=== PATIENT | male | born 1955 | race Caucasian/White ===

== ENCOUNTER 2018-01-18 10:01 | Outpatient (CLI) | payer BC, SELFPAY ==
[2018-01-18 10:37] LABS: Abs Immature Grans 0.01 k/cumm (0.0-0.09); Absolute Basophil Count 0.05 k/cumm (0.0-0.2); Absolute Eosinophil Count 0.09 k/cumm (0.0-0.7); Absolute Lymphocyte Count 1.21 k/cumm (1.2-3.4); Absolute Monocyte Count 0.47 k/cumm (0.11-0.7); Absolute Neutrophil Count 3.29 k/cumm (1.2-6.7); Eosinophils % 1.8; HCT 40.5 % (40.0-50.0); HGB 14.2 g/dL (13.5-17.5); Immature Grans % 0.2; Lymphocytes % 23.6; Mean Corp. HGB Concentration 35.1 g/dL (32.0-36.0); Mean Corpuscular Hemoglobin 32.2 pg (27.0-33.0); Mean Corpuscular Volume 91.8 fL (80-95); Mean Platelet Volume 9.7 fL (8.0-11.0); Monocytes % 9.2; Neutrophils % 64.2; Platelet Count 224 x1000/uL (130-400); RBC 4.41 m/cumm (4.50-6.00); White Blood Cell Count 5.12 k/cumm (4.4-10.8)
[2018-01-18 10:48] LABS: ALT 52 U/L (12-78); AST 28 U/L (15-37); Albumin 3.8 g/dL (3.4-5.0); Alkaline Phosphatase 76 U/L (46-116); Anion Gap 8.3 mmol/L (3-11); BUN 12 mg/dL (7-18); Bilirubin, Total 0.4 mg/dL (0.2-1.0); CO2 27.7 mmol/L (21.0-32.0); CREATININE 0.95 mg/dL (0.70-1.30); Chloride 100 mmol/L (98-107); Glucose 100 mg/dL (70-100); Magnesium 1.6 mg/dL (1.8-2.4); Potassium 4.5 mmol/L (3.5-5.1); Sodium 136 mmol/L (136-145); Total Protein 7.5 g/dL (6.4-8.2)
== END 2018-01-18 10:21 ==
PROVIDERS: PCP Nurse Practitioner; Visit Provider Internal Medicine Medical Oncology
DX: C32.9 Malignant neoplasm of larynx, unspecified (principal)
CPT/HCPCS: 36415; 80053; 80061; 82306; 83721; 83735; 85025

== ENCOUNTER 2018-01-27 14:23 | Outpatient (CLI) | payer BC, SELFPAY ==
[2018-01-27 16:37] LABS: Cholesterol 153 mg/dL (50-200); HDL Cholesterol 44 mg/dL (40-60); LDL CHOLESTEROL 77 mg/dL (<100); Triglyceride 361 mg/dL (30-150)
[2018-01-28 06:02] LABS: Vitamin D 25 Total 30.8 ng/ml (30-100)
== END 2018-01-27 14:43 ==
PROVIDERS: PCP Nurse Practitioner; Visit Provider Internal Medicine Medical Oncology
DX: I10 Essential (primary) hypertension (principal); E78.5 Hyperlipidemia, unspecified; F17.200 Nicotine dependence, unspecified, uncomplicated; E55.9 Vitamin D deficiency, unspecified
CPT/HCPCS: 36415; 80061; 82306; 83721

== ENCOUNTER 2018-01-28 08:59 | Outpatient (CLI) | payer BC, SELFPAY ==
[2018-01-28 09:14] LABS: Abs Immature Grans 0.02 k/cumm (0.0-0.09); Absolute Basophil Count 0.03 k/cumm (0.0-0.2); Absolute Eosinophil Count 0.11 k/cumm (0.0-0.7); Absolute Lymphocyte Count 0.75 k/cumm (1.2-3.4); Absolute Monocyte Count 0.72 k/cumm (0.11-0.7); Absolute Neutrophil Count 4.67 k/cumm (1.2-6.7); Basophils % 0.5; Eosinophils % 1.7; HCT 39.8 % (40.0-50.0); HGB 13.7 g/dL (13.5-17.5); Immature Grans % 0.3; Lymphocytes % 11.9; Mean Corp. HGB Concentration 34.4 g/dL (32.0-36.0); Mean Corpuscular Hemoglobin 31.4 pg (27.0-33.0); Mean Corpuscular Volume 91.3 fL (80-95); Mean Platelet Volume 9.4 fL (8.0-11.0); Monocytes % 11.4; Neutrophils % 74.2; Platelet Count 221 x1000/uL (130-400); RBC 4.36 m/cumm (4.50-6.00); RBC Distribution Width 13.7 % (11.8-14.1)
[2018-01-28 09:28] LABS: ALT 50 U/L (12-78); AST 15 U/L (15-37); Albumin 3.6 g/dL (3.4-5.0); Alkaline Phosphatase 63 U/L (46-116); Anion Gap 6.6 mmol/L (3-11); BUN 19 mg/dL (7-18); Bilirubin, Total 0.5 mg/dL (0.2-1.0); CO2 31.4 mmol/L (21.0-32.0); CREATININE 1.03 mg/dL (0.70-1.30); Calcium 8.9 mg/dL (8.5-10.1); Chloride 98 mmol/L (98-107); Glucose 124 mg/dL (70-100); Magnesium 1.3 mg/dL (1.8-2.4); Potassium 3.6 mmol/L (3.5-5.1); Sodium 136 mmol/L (136-145); Total Protein 7.1 g/dL (6.4-8.2)
== END 2018-01-28 09:19 ==
PROVIDERS: PCP Nurse Practitioner; Visit Provider Internal Medicine Medical Oncology
DX: C32.9 Malignant neoplasm of larynx, unspecified (principal)
CPT/HCPCS: 36415; 80053; 83735; 85025

== ENCOUNTER 2018-02-03 11:53 | Outpatient (CLI) | payer BC, SELFPAY ==
[2018-02-03 12:26] LABS: Abs Immature Grans 0.01 k/cumm (0.0-0.09); Absolute Basophil Count 0.04 k/cumm (0.0-0.2); Absolute Eosinophil Count 0.09 k/cumm (0.0-0.7); Absolute Lymphocyte Count 0.96 k/cumm (1.2-3.4); Absolute Monocyte Count 0.49 k/cumm (0.11-0.7); Absolute Neutrophil Count 5.23 k/cumm (1.2-6.7); Basophils % 0.6; Eosinophils % 1.3; HCT 37.3 % (40.0-50.0); HGB 12.8 g/dL (13.5-17.5); Immature Grans % 0.1; Lymphocytes % 14.1; Mean Corp. HGB Concentration 34.3 g/dL (32.0-36.0); Mean Corpuscular Hemoglobin 31.9 pg (27.0-33.0); Mean Platelet Volume 9.4 fL (8.0-11.0); Monocytes % 7.2; Neutrophils % 76.7; Platelet Count 220 x1000/uL (130-400); RBC 4.01 m/cumm (4.50-6.00); RBC Distribution Width 13.8 % (11.8-14.1); White Blood Cell Count 6.82 k/cumm (4.4-10.8)
[2018-02-03 12:37] LABS: Magnesium 1.1 mg/dL (1.8-2.4)
[2018-02-04 10:11] LABS: ALT 57 U/L (12-78); AST 19 U/L (15-37); Albumin 3.6 g/dL (3.4-5.0); Alkaline Phosphatase 62 U/L (46-116); Anion Gap 8.6 mmol/L (3-11); BUN 26 mg/dL (7-18); Bilirubin, Total 0.4 mg/dL (0.2-1.0); CO2 30.4 mmol/L (21.0-32.0); CREATININE 1.21 mg/dL (0.70-1.30); Calcium 9.2 mg/dL (8.5-10.1); Chloride 96 mmol/L (98-107); Glucose 199 mg/dL (70-100); Sodium 135 mmol/L (136-145); Total Protein 6.9 g/dL (6.4-8.2)
== END 2018-02-03 12:13 ==
PROVIDERS: PCP Nurse Practitioner; Visit Provider Internal Medicine Medical Oncology
DX: C32.9 Malignant neoplasm of larynx, unspecified (principal)
CPT/HCPCS: 36415; 80053; 83735; 85025

== ENCOUNTER 2018-02-10 14:12 | Outpatient (CLI) | payer BC, SELFPAY ==
[2018-02-10 14:31] LABS: Abs Immature Grans 0.02 k/cumm (0.0-0.09); Absolute Basophil Count 0.03 k/cumm (0.0-0.2); Absolute Lymphocyte Count 0.58 k/cumm (1.2-3.4); Absolute Monocyte Count 0.64 k/cumm (0.11-0.7); Absolute Neutrophil Count 4.39 k/cumm (1.2-6.7); Basophils % 0.5; Eosinophils % 1.7; HCT 32.9 % (40.0-50.0); HGB 11.5 g/dL (13.5-17.5); Immature Grans % 0.3; Lymphocytes % 10.1; Mean Corpuscular Hemoglobin 32.1 pg (27.0-33.0); Mean Corpuscular Volume 91.9 fL (80-95); Mean Platelet Volume 9.1 fL (8.0-11.0); Monocytes % 11.1; Neutrophils % 76.3; Platelet Count 222 x1000/uL (130-400); RBC 3.58 m/cumm (4.50-6.00); RBC Distribution Width 13.7 % (11.8-14.1); White Blood Cell Count 5.76 k/cumm (4.4-10.8)
[2018-02-10 14:53] LABS: ALT 29 U/L (12-78); AST 11 U/L (15-37); Albumin 3.4 g/dL (3.4-5.0); Alkaline Phosphatase 55 U/L (46-116); Anion Gap 9.3 mmol/L (3-11); BUN 26 mg/dL (7-18); Bilirubin, Total 0.3 mg/dL (0.2-1.0); CO2 27.7 mmol/L (21.0-32.0); CREATININE 1.07 mg/dL (0.70-1.30); Calcium 9.1 mg/dL (8.5-10.1); Chloride 96 mmol/L (98-107); Glucose 122 mg/dL (70-100); Magnesium 1.1 mg/dL (1.8-2.4); Potassium 3.7 mmol/L (3.5-5.1); Sodium 133 mmol/L (136-145); Total Protein 6.7 g/dL (6.4-8.2)
== END 2018-02-10 14:32 ==
PROVIDERS: PCP Nurse Practitioner; Visit Provider Internal Medicine Medical Oncology
DX: C32.9 Malignant neoplasm of larynx, unspecified (principal)
CPT/HCPCS: 36415; 80053; 83735; 85025

== ENCOUNTER 2018-02-17 14:13 | Outpatient (CLI) | payer BC, SELFPAY ==
[2018-02-17 14:36] LABS: Abs Immature Grans 0.01 k/cumm (0.0-0.09); Absolute Basophil Count 0.02 k/cumm (0.0-0.2); Absolute Eosinophil Count 0.13 k/cumm (0.0-0.7); Absolute Lymphocyte Count 0.51 k/cumm (1.2-3.4); Absolute Neutrophil Count 3.74 k/cumm (1.2-6.7); Basophils % 0.4; Eosinophils % 2.6; HCT 30.8 % (40.0-50.0); HGB 10.7 g/dL (13.5-17.5); Immature Grans % 0.2; Lymphocytes % 10.2; Mean Corp. HGB Concentration 34.7 g/dL (32.0-36.0); Mean Corpuscular Hemoglobin 32.1 pg (27.0-33.0); Mean Corpuscular Volume 92.5 fL (80-95); Mean Platelet Volume 8.4 fL (8.0-11.0); Neutrophils % 74.6; Platelet Count 169 x1000/uL (130-400); RBC 3.33 m/cumm (4.50-6.00); RBC Distribution Width 13.9 % (11.8-14.1); White Blood Cell Count 5.01 k/cumm (4.4-10.8)
[2018-02-17 14:52] LABS: ALT 25 U/L (12-78); AST 9 U/L (15-37); Albumin 3.3 g/dL (3.4-5.0); Alkaline Phosphatase 60 U/L (46-116); Anion Gap 8.2 mmol/L (3-11); BUN 19 mg/dL (7-18); Bilirubin, Total 0.3 mg/dL (0.2-1.0); CO2 28.8 mmol/L (21.0-32.0); CREATININE 0.96 mg/dL (0.70-1.30); Calcium 8.6 mg/dL (8.5-10.1); Chloride 96 mmol/L (98-107); Glucose 122 mg/dL (70-100); Magnesium 1.1 mg/dL (1.8-2.4); Potassium 4.1 mmol/L (3.5-5.1); Sodium 133 mmol/L (136-145); Total Protein 6.5 g/dL (6.4-8.2)
== END 2018-02-17 14:33 ==
PROVIDERS: PCP Nurse Practitioner; Visit Provider Internal Medicine Medical Oncology
DX: C32.9 Malignant neoplasm of larynx, unspecified (principal)
CPT/HCPCS: 36415; 80053; 83735; 85025

== ENCOUNTER 2018-02-24 14:09 | Outpatient (CLI) | payer BC, SELFPAY ==
[2018-02-24 14:36] LABS: Abs Immature Grans 0.01 k/cumm (0.0-0.09); Absolute Basophil Count 0.01 k/cumm (0.0-0.2); Absolute Eosinophil Count 0.09 k/cumm (0.0-0.7); Absolute Lymphocyte Count 0.48 k/cumm (1.2-3.4); Absolute Monocyte Count 0.44 k/cumm (0.11-0.7); Absolute Neutrophil Count 2.75 k/cumm (1.2-6.7); Basophils % 0.3; Eosinophils % 2.4; HGB 10.6 g/dL (13.5-17.5); Immature Grans % 0.3; Lymphocytes % 12.7; Mean Corp. HGB Concentration 35.3 g/dL (32.0-36.0); Mean Corpuscular Hemoglobin 32.4 pg (27.0-33.0); Mean Corpuscular Volume 91.7 fL (80-95); Mean Platelet Volume 8.2 fL (8.0-11.0); Monocytes % 11.6; Neutrophils % 72.7; Platelet Count 108 x1000/uL (130-400); RBC 3.27 m/cumm (4.50-6.00); RBC Distribution Width 14.4 % (11.8-14.1); White Blood Cell Count 3.78 k/cumm (4.4-10.8)
[2018-02-24 14:48] LABS: ALT 29 U/L (12-78); AST 9 U/L (15-37); Albumin 3.5 g/dL (3.4-5.0); Alkaline Phosphatase 55 U/L (46-116); BUN 19 mg/dL (7-18); Bilirubin, Total 0.4 mg/dL (0.2-1.0); CREATININE 0.81 mg/dL (0.70-1.30); Calcium 9.5 mg/dL (8.5-10.1); Chloride 98 mmol/L (98-107); Glucose 106 mg/dL (70-100); Magnesium 1.3 mg/dL (1.8-2.4); Potassium 4.1 mmol/L (3.5-5.1); Sodium 134 mmol/L (136-145); Total Protein 6.8 g/dL (6.4-8.2)
== END 2018-02-24 14:29 ==
PROVIDERS: PCP Nurse Practitioner; Visit Provider Internal Medicine Medical Oncology
DX: C32.9 Malignant neoplasm of larynx, unspecified (principal)
CPT/HCPCS: 36415; 80053; 83735; 85025

== ENCOUNTER 2018-03-03 14:08 | Outpatient (CLI) | payer BC, SELFPAY ==
[2018-03-03 14:31] LABS: Absolute Basophil Count 0.01 k/cumm (0.0-0.2); Absolute Eosinophil Count 0.07 k/cumm (0.0-0.7); Absolute Lymphocyte Count 0.51 k/cumm (1.2-3.4); Absolute Neutrophil Count 2.76 k/cumm (1.2-6.7); Basophils % 0.3; Eosinophils % 1.9; HCT 31.4 % (40.0-50.0); HGB 10.9 g/dL (13.5-17.5); Lymphocytes % 13.6; Mean Corp. HGB Concentration 34.7 g/dL (32.0-36.0); Mean Corpuscular Hemoglobin 32.7 pg (27.0-33.0); Mean Corpuscular Volume 94.3 fL (80-95); Mean Platelet Volume 7.8 fL (8.0-11.0); Monocytes % 10.7; Neutrophils % 73.5; Platelet Count 126 x1000/uL (130-400); RBC 3.33 m/cumm (4.50-6.00); RBC Distribution Width 14.9 % (11.8-14.1); White Blood Cell Count 3.75 k/cumm (4.4-10.8)
[2018-03-03 14:43] LABS: ALT 27 U/L (12-78); AST 10 U/L (15-37); Albumin 3.4 g/dL (3.4-5.0); Alkaline Phosphatase 56 U/L (46-116); Anion Gap 7.8 mmol/L (3-11); BUN 21 mg/dL (7-18); Bilirubin, Total 0.4 mg/dL (0.2-1.0); CO2 32.2 mmol/L (21.0-32.0); CREATININE 0.82 mg/dL (0.70-1.30); Calcium 9.4 mg/dL (8.5-10.1); Chloride 95 mmol/L (98-107); Glucose 115 mg/dL (70-100); Potassium 3.9 mmol/L (3.5-5.1); Sodium 135 mmol/L (136-145); Total Protein 6.9 g/dL (6.4-8.2)
[2018-03-04 10:56] LABS: Magnesium 1.5 mg/dL (1.8-2.4)
== END 2018-03-03 14:28 ==
PROVIDERS: PCP Nurse Practitioner; Visit Provider Internal Medicine Medical Oncology
DX: C32.9 Malignant neoplasm of larynx, unspecified (principal)
CPT/HCPCS: 36415; 80053; 83735; 85025

== ENCOUNTER 2018-03-10 09:16 | Outpatient (CLI) | payer BC, SELFPAY ==
[2018-03-10 09:42] LABS: Magnesium 1.4 mg/dL (1.8-2.4)
[2018-03-11 11:20] LABS: ALT 28 U/L (12-78); AST 7 U/L (15-37); Albumin 3.6 g/dL (3.4-5.0); Alkaline Phosphatase 59 U/L (46-116); Anion Gap 7.7 mmol/L (3-11); BUN 15 mg/dL (7-18); Bilirubin, Total 0.4 mg/dL (0.2-1.0); CO2 29.3 mmol/L (21.0-32.0); CREATININE 0.75 mg/dL (0.70-1.30); Calcium 9.4 mg/dL (8.5-10.1); Chloride 98 mmol/L (98-107); Glucose 118 mg/dL (70-100); Potassium 3.8 mmol/L (3.5-5.1); Sodium 135 mmol/L (136-145)
== END 2018-03-10 09:36 ==
PROVIDERS: Internal Medicine Medical Oncology; PCP Nurse Practitioner; Visit Provider Nurse Practitioner Adult Health
DX: C32.9 Malignant neoplasm of larynx, unspecified (principal)
CPT/HCPCS: 36415; 80053; 83735

== ENCOUNTER 2018-03-11 12:19 | Outpatient (CLI) | payer BC, SELFPAY ==
[2018-03-11 12:38] LABS: Absolute Basophil Count 0.01 k/cumm (0.0-0.2); Absolute Eosinophil Count 0.05 k/cumm (0.0-0.7); Absolute Lymphocyte Count 0.37 k/cumm (1.2-3.4); Absolute Monocyte Count 0.29 k/cumm (0.11-0.7); Basophils % 0.4; Eosinophils % 2.1; HCT 27.2 % (40.0-50.0); HGB 9.5 g/dL (13.5-17.5); Lymphocytes % 15.3; Mean Corp. HGB Concentration 34.9 g/dL (32.0-36.0); Mean Corpuscular Hemoglobin 33.1 pg (27.0-33.0); Mean Corpuscular Volume 94.8 fL (80-95); Mean Platelet Volume 7.7 fL (8.0-11.0); Neutrophils % 70.2; Platelet Count 177 x1000/uL (130-400); RBC 2.87 m/cumm (4.50-6.00); RBC Distribution Width 15.7 % (11.8-14.1); White Blood Cell Count 2.42 k/cumm (4.4-10.8)
[2018-03-11 12:51] LABS: ALT 26 U/L (12-78); AST 11 U/L (15-37); Albumin 3.3 g/dL (3.4-5.0); Alkaline Phosphatase 54 U/L (46-116); Anion Gap 5.4 mmol/L (3-11); BUN 11 mg/dL (7-18); Bilirubin, Total 0.3 mg/dL (0.2-1.0); CO2 29.6 mmol/L (21.0-32.0); CREATININE 0.72 mg/dL (0.70-1.30); Calcium 8.6 mg/dL (8.5-10.1); Chloride 99 mmol/L (98-107); Glucose 149 mg/dL (70-100); Potassium 3.7 mmol/L (3.5-5.1); Sodium 134 mmol/L (136-145); Total Protein 6.5 g/dL (6.4-8.2)
== END 2018-03-11 12:39 ==
PROVIDERS: PCP Nurse Practitioner; Visit Provider Nurse Practitioner Adult Health
DX: C32.9 Malignant neoplasm of larynx, unspecified (principal)
CPT/HCPCS: 36415; 80053; 85025

== ENCOUNTER 2018-03-17 11:28 | Outpatient (CLI) | payer BC, SELFPAY ==
[2018-03-17 12:07] LABS: Absolute Basophil Count 0.01 k/cumm (0.0-0.2); Absolute Eosinophil Count 0.05 k/cumm (0.0-0.7); Absolute Lymphocyte Count 0.42 k/cumm (1.2-3.4); Absolute Monocyte Count 0.47 k/cumm (0.11-0.7); Basophils % 0.4; Eosinophils % 1.8; HCT 27.1 % (40.0-50.0); HGB 9.7 g/dL (13.5-17.5); Lymphocytes % 14.7; Mean Corp. HGB Concentration 35.8 g/dL (32.0-36.0); Mean Corpuscular Hemoglobin 33.7 pg (27.0-33.0); Mean Corpuscular Volume 94.1 fL (80-95); Mean Platelet Volume 8.3 fL (8.0-11.0); Monocytes % 16.5; Neutrophils % 66.6; Platelet Count 179 x1000/uL (130-400); RBC 2.88 m/cumm (4.50-6.00); RBC Distribution Width 16.1 % (11.8-14.1); White Blood Cell Count 2.85 k/cumm (4.4-10.8)
[2018-03-17 12:10] LABS: ALT 29 U/L (12-78); AST 8 U/L (15-37); Albumin 3.4 g/dL (3.4-5.0); Alkaline Phosphatase 65 U/L (46-116); Anion Gap 9.1 mmol/L (3-11); BUN 15 mg/dL (7-18); Bilirubin, Total 0.4 mg/dL (0.2-1.0); CO2 30.9 mmol/L (21.0-32.0); CREATININE 0.75 mg/dL (0.70-1.30); Calcium 9.4 mg/dL (8.5-10.1); Chloride 97 mmol/L (98-107); Glucose 124 mg/dL (70-100); Magnesium 1.4 mg/dL (1.8-2.4); Potassium 3.6 mmol/L (3.5-5.1); Sodium 137 mmol/L (136-145); Total Protein 6.7 g/dL (6.4-8.2)
== END 2018-03-17 11:48 ==
PROVIDERS: PCP Nurse Practitioner; Visit Provider Nurse Practitioner Adult Health
DX: C32.9 Malignant neoplasm of larynx, unspecified (principal)
CPT/HCPCS: 36415; 80053; 83735; 85025

== ENCOUNTER 2018-03-25 13:33 | Outpatient (REF) | payer BC, SELFPAY ==
[2018-03-25 14:14] LABS: Uric Acid 4.5 mg/dL (3.5-7.2)
== END 2018-03-25 13:53 ==
LOC: LBN 13:33
PROVIDERS: PCP Nurse Practitioner; Visit Provider Nurse Practitioner
DX: M79.671 Pain in right foot (principal); M79.672 Pain in left foot; M79.675 Pain in left toe(s)
CPT/HCPCS: 84550

== ENCOUNTER 2018-04-07 14:06 | Outpatient (CLI) | payer BC, SELFPAY ==
[2018-04-07 14:36] LABS: Abs Immature Grans 0.01 k/cumm (0.0-0.09); Absolute Basophil Count 0.02 k/cumm (0.0-0.2); Absolute Eosinophil Count 0.09 k/cumm (0.0-0.7); Absolute Lymphocyte Count 0.69 k/cumm (1.2-3.4); Absolute Monocyte Count 0.57 k/cumm (0.11-0.7); Absolute Neutrophil Count 2.75 k/cumm (1.2-6.7); Basophils % 0.5; Eosinophils % 2.2; HCT 31.4 % (40.0-50.0); HGB 10.8 g/dL (13.5-17.5); Immature Grans % 0.2; Lymphocytes % 16.7; Mean Corp. HGB Concentration 34.4 g/dL (32.0-36.0); Mean Corpuscular Volume 98.7 fL (80-95); Mean Platelet Volume 8.5 fL (8.0-11.0); Monocytes % 13.8; Neutrophils % 66.6; Platelet Count 209 x1000/uL (130-400); RBC 3.18 m/cumm (4.50-6.00); RBC Distribution Width 16.5 % (11.8-14.1); White Blood Cell Count 4.13 k/cumm (4.4-10.8)
[2018-04-07 14:58] LABS: ALT 28 U/L (12-78); AST 13 U/L (15-37); Albumin 3.7 g/dL (3.4-5.0); Alkaline Phosphatase 59 U/L (46-116); Anion Gap 9.8 mmol/L (3-11); BUN 18 mg/dL (7-18); Bilirubin, Total 0.5 mg/dL (0.2-1.0); CO2 28.2 mmol/L (21.0-32.0); CREATININE 0.84 mg/dL (0.70-1.30); Calcium 9.2 mg/dL (8.5-10.1); Chloride 99 mmol/L (98-107); Glucose 98 mg/dL (70-100); Magnesium 1.5 mg/dL (1.8-2.4); Potassium 4.2 mmol/L (3.5-5.1); Sodium 137 mmol/L (136-145); TSH 1.49 uIU/mL (0.358-3.74); Total Protein 7.1 g/dL (6.4-8.2)
== END 2018-04-07 14:26 ==
LOC: LBN 14:07 → LBO 14:09
PROVIDERS: PCP Nurse Practitioner; Visit Provider Nurse Practitioner Adult Health
DX: C32.9 Malignant neoplasm of larynx, unspecified (principal); E03.9 Hypothyroidism, unspecified
CPT/HCPCS: 36415; 80053; 83735; 84443; 85025

== ENCOUNTER 2018-05-18 02:11 | Outpatient (CLI) | payer BC, SELFPAY | END 2018-05-18 02:31 | PROVIDERS: PCP Nurse Practitioner | DX: R13.11 Dysphagia, oral phase (principal) | CPT/HCPCS: 92610 ==

== ENCOUNTER 2018-06-29 00:40 | Outpatient (CLI) | payer BC, SELFPAY ==
[2018-06-29 09:09] LABS: Cholesterol 163 mg/dL (50-200); HDL Cholesterol 38 mg/dL (40-60); LDL CHOLESTEROL 101 mg/dL (<100); Triglyceride 118 mg/dL (30-150)
== END 2018-06-29 01:00 ==
PROVIDERS: PCP Nurse Practitioner; Visit Provider Nurse Practitioner
DX: E78.5 Hyperlipidemia, unspecified (principal)
CPT/HCPCS: 36415; 80053; 80061; 83721; 83735; 85025

== ENCOUNTER 2019-01-07 10:31 | Day surgery (SDC) | payer BC, SELFPAY ==
[2019-01-07 10:54] VITALS: BP 110/77; PULSE 98; RESP 18; TEMP 36.1; O2SAT 95
[2019-01-07] MEDS: Lactated Ringers 1,000 ML 80 ML IV (11:01)
--- NOTE | 2019-01-07 13:05 | W.PM.DSUDISC ---
Discharge Plan Disposition Patient Disposition: HOME Condition: Good Discharge Details Reason For Visit: Colonoscopy Attending Provider: Daisy Bey Primary Care Provider: Alondra Pedersen Home Meds and New Rx's Prescriptions: Continued losartan 100 mg tablet 100 mg PO DAILY Qty: 90 RF: 3 pravastatin 40 mg tablet 40 mg PO DAILY Qty: 90 RF: 3 Discharge Instructions Additional Instructions: Findings: Your colonoscopy showed diverticulosis. No polyps were found. Follow up: Plan for a follow up colonoscopy in 5 years due to family history and personal history of polyps Please call if you develop: fevers >101.5 Nausea or Vomiting Abdominal pain that is not transient DAY SURGERY UNIT POST COLONOSCOPY INSTRUCTIONS 1. Because there will be medication in your system for the next 24 hours, you may feel a little sleepy. Your coordination will be affected. Therefore: a. Do not drive or operate dangerous equipment for 24 hours. b. Do not drink alcohol beverages for 24 hours (not even beer). c. Plan to go home and rest for the day. 2. Generally there are no restrictions on your activity after a day or so has gone by, but you may feel a bit fatigued for a few days. 3 After you arrive home you may have a light meal and return to a normal diet as you can tolerate it without feeling sick to your stomach. 4. After surgery, you may feel pain or discomfort. This should be only transient, but if it persists please contact your doctor. 5. If there are any questions regarding the findings of your procedure, please feel free to contact your doctor. 6. If you are unable to contact your doctor with a problem, contact the hospital at [phone]. 7. Continue all your regular medications unless directed otherwise. I understand the above instructions and have no questions. Signature of Patient or Responsible Adult Escort Date/Time Name of Responsible Adult Escort Signature of Nurse Date/Time Activity:: Activity as Tolerated Diet:: As Tolerated Discharge Orders Discharge Orders: Discharge Order (Routine); Ordered 01/07/19 Ordered By: Daisy Bey DS: Diagnosis Discharge Diagnosis (1) Diverticulosis: Status: Acute
[2019-01-07 13:50] VITALS: BP 100/69; PULSE 91; RESP 16; TEMP 36.3; O2SAT 96
--- NOTE | 2019-01-07 13:51 | COLE_ITS ---
JANUARY 07, 2019 PREOPERATIVE DIAGNOSIS: 1) History of colon polyps. 2) Family history of colon cancer. POSTOPERATIVE DIAGNOSIS: 1) Diverticulosis. OPERATION: Colonoscopy. ANESTHESIA: General. INDICATIONS: This is a 63-year-old man whose mother was treated for colon cancer. The patient had a colonoscopy in 2013 that showed tubular adenomas and presents for routine follow-up. He is asympto matic. PROCEDURE: The patient was placed in the left [place]. Propofol was titrated to sedation. Digital rectal exam revealed no abnormalities. The scope was advanced to the cecum without difficulty. The ileocecal valve and appendiceal orifice were clearly identified. His prep was excellent. The scope was fully withdrawn with no abnormaliti es seen within the ascending, transverse or descending colon. He had mild to moderate diverticular c hange in the sigmoid region. The rectum was normal including retroflexed view. He tolerated the procedure well and was stable and sent to recovery. With his history of polyps and family history of colon cancer he will need a follow-up colonoscopy again in five years.
== END 2019-01-07 14:25 | disposition home or self-care (01) ==
PROVIDERS: PCP Nurse Practitioner; Visit Provider Surgery
PROC: 0DJD8ZZ Inspection of Lower Intestinal Tract, Via Natural or Artificial Opening Endoscopic (ICD-10-PCS; CPT 45378; principal; 2019-01-07 13:15)
DX: Z12.11 Encounter for screening for malignant neoplasm of colon (principal); Z86.010 Personal history of colon polyps; Z80.0 Family history of malignant neoplasm of digestive organs; K57.30 Diverticulosis of large intestine without perforation or abscess without bleeding; I10 Essential (primary) hypertension
CPT/HCPCS: 45378; J2250; J3010

== ENCOUNTER 2019-01-19 09:50 | Outpatient (CLI) | payer BC, SELFPAY ==
[2019-01-19 15:13] LABS: HCT 40.3 % (40.0-50.0); HGB 13.9 g/dL (13.5-17.5); Mean Corp. HGB Concentration 34.5 g/dL (32.0-36.0); Mean Corpuscular Hemoglobin 32.9 pg (27.0-33.0); Mean Corpuscular Volume 95.5 fL (80-95); Mean Platelet Volume 9.4 fL (8.0-11.0); Platelet Count 284 x1000/uL (130-400); RBC 4.22 m/cumm (4.50-6.00); RBC Distribution Width 13.6 % (11.8-14.1); White Blood Cell Count 5.67 k/cumm (4.4-10.8)
[2019-01-19 15:51] LABS: ALT 35 U/L (16-63); AST 14 U/L (15-37); Alkaline Phosphatase 89 U/L (46-116); Anion Gap 10.6 mmol/L (3-11); BUN 19 mg/dL (7-18); Bilirubin, Total 0.6 mg/dL (0.2-1.0); CO2 27.4 mmol/L (21.0-32.0); CREATININE 1.07 mg/dL (0.70-1.30); Calculated LDL 69 mg/dL; Chloride 97 mmol/L (98-107); Cholesterol 151 mg/dL (50-200); Glucose 135 mg/dL (70-100); HDL Cholesterol 36 mg/dL (40-60); Potassium 4.2 mmol/L (3.5-5.1); Sodium 135 mmol/L (136-145); Total Protein 7.2 g/dL (6.4-8.2); Triglyceride 233 mg/dL (30-150)
[2019-01-19 15:58] LABS: Calcium 9.8 mg/dL (8.5-10.1)
== END 2019-01-19 10:10 ==
PROVIDERS: PCP Nurse Practitioner; Visit Provider Nurse Practitioner
DX: E78.5 Hyperlipidemia, unspecified (principal); I10 Essential (primary) hypertension
CPT/HCPCS: 36415; 80053; 80061; 85027

== ENCOUNTER 2019-07-27 07:17 | Outpatient (CLI) | payer BC, SELFPAY ==
[2019-07-27 08:34] LABS: TSH (W/Ref FT4) 3.59 uIU/mL (0.36-3.74)
== END 2019-07-27 07:37 ==
PROVIDERS: PCP Nurse Practitioner; Visit Provider Nurse Practitioner
DX: E03.9 Hypothyroidism, unspecified (principal)
CPT/HCPCS: 36415; 84443

== ENCOUNTER → 2020-05-07 03:06 | Outpatient (CLI) | payer BC, SELFPAY ==
[2020-05-07 07:53] LABS: HCT 40.2 % (40.0-50.0); HGB 13.8 g/dL (13.5-17.5); MCH 33.1 pg (27.0-33.0); MCHC 34.3 % (32.0-36.0); MCV 96.4 fL (80-95); MPV 9.5 fL (8.0-11.0); Platelet Count 230 10^3/uL (130-400); RBC 4.17 10^6/uL (4.36-5.78); RDW 12.9 % (11.8-14.1)
[2020-05-07 08:10] LABS: Hemoglobin A1C 5.5 % (<5.7)
[2020-05-07 08:57] LABS: ESR 7 mm/hr (1-20)
[2020-05-07 09:03] LABS: ALT 40 U/L (16-63); AST 16 U/L (15-37); Alkaline Phosphatase 62 U/L (46-116); BUN 14 mg/dL (7-18); Bilirubin, Total 0.9 mg/dL (0.2-1.0); CREATININE 1.21 mg/dL (0.70-1.30); Calculated LDL 76 mg/dL (<100); Chloride 99 mmol/L (98-107); Cholesterol 177 mg/dL (<200); Glucose 108 mg/dL (74-106); HDL Cholesterol 38 mg/dL (40-60); Sodium 135 mmol/L (136-145); TSH (W/Ref FT4) 4.61 uIU/mL (0.36-3.74); Total Protein 6.9 g/dL (6.4-8.2); Triglyceride 319 mg/dL (<150)
[2020-05-07 09:21] LABS: C-Reactive Protein 0.22 mg/dL (0.0-0.3); FREE T4 0.92 ng/dL (0.76-1.46)
== END ==
PROVIDERS: PCP Nurse Practitioner; Visit Provider Nurse Practitioner
DX: E11.9 Type 2 diabetes mellitus without complications (principal); E03.9 Hypothyroidism, unspecified; E78.5 Hyperlipidemia, unspecified; I10 Essential (primary) hypertension; H53.8 Other visual disturbances
CPT/HCPCS: 36415; 80053; 80061; 85027; 85652; 83036; 84439; 84443; 86140

== ENCOUNTER 2020-05-15 00:46 | Outpatient (CLI) | payer BC, SELFPAY ==
--- NOTE | 2020-05-15 06:30 | DI.US_ITS ---
EXAM: US CAROTID CLINICAL HISTORY: episode bilat blurred vision 3 weeks ago, h53.8. TECHNIQUE: Ultrasound carotids performed using grayscale, color-flow, and spectral Doppler imaging. COMPARISON: No exams were available for comparison FINDINGS: RIGHT CAROTID ARTERY: Plaque: Mild calcific plaque seen in the distal common carotid artery and the carotid bulb. Velocity elevation: None. LEFT CAROTID ARTERY: Plaque: Mild calcific plaque in the common carotid artery and carotid bulb. Velocity elevation: None. VERTEBRAL ARTERIES: Antegrade flow. Measurements: R Bulb: 60.4cm/s PS / 20.6cm/s ED R CCA: 92.5cm/s PS / 36.4cm/s ED R ECA: 112 centimeters/second PS/28 centimeters/second ED R ICA Prox: 94.7cm/s PS /31.8cm/s ED R ICA Mid: 79.7cm/s PS / 33.9cm/s ED R ICA Distal: 97.4cm/s PS /37.1cm/s ED R Vert: 29.3cm/s PS / 9.9cm/s ED R SVR: 1.05 R DVR: 1.02 L Bulb: 81cm/s PS /23.1cm/s ED L CCA: 111.6cm/s PS / 42.1cm/s ED L ECA: 106.4cm/s PS /25cm/s ED L ICA Prox:89.7cm/s PS / 31.1cm/s ED L ICA Mid: 75cm/sPS / 36.1cm/s ED L ICA Distal: 91.15cm/s PS / 46.25cm/s ED L Vert: 35.2cm/s PS / 15.7cm/s ED L SVR: 0.85 L DVR: 1.05 IMPRESSION: No evidence for hemodynamically significant carotid stenosis. Criteria for Carotid Stenosis: Normal: ICA PSV <125 cm/s no plaque or intimal thickening is visible. <50% stenosis: ICA PSV <125 cm/s and plaque or intimal thickening is visible. 50-69% stenosis: ICA PSV is 125-250 cm/s and plaque is visible. >70% stenosis to near occlusion: ICA PSV >250 cm/s with visible plaque and luminal narrowing. DATA REPOSITORY:
== END 2020-05-15 01:06 ==
PROVIDERS: PCP Nurse Practitioner; Visit Provider Nurse Practitioner
DX: H53.8 Other visual disturbances (principal)
CPT/HCPCS: 93880

== ENCOUNTER 2020-05-29 00:35 | Outpatient (CLI) | payer BC, SELFPAY ==
--- NOTE | 2020-05-29 07:29 | DI.US_ITS ---
APPROVED REPORT EXAM: Comprehensive 2D, Doppler, and color-flow Echocardiogram Patient Location: Out-Patient Security Ambassador: Corin Ortiz RDCS (AE) Indications: Episodes of blurred vision, HTN, Hyperlipidemia Other Information Study Quality: Adequate Conclusion Normal left ventricular wall thickness and chamber size. Estimated ejection fraction is 55 to 60%. Wall motion is normal Normal right ventricular size and systolic function Both atria are normal in size Structurally normal aortic valve Moderate mitral annular calcification. Trace mitral regurgitation Normal tricuspid valve. Trace to mild tricuspid regurgitation. Normal estimated right ventricular s ystolic pressure Normal pulmonic valve Wall motion Left Ventricle The left ventricle is normal size. The left ventricular systolic function is normal. The left ventric ular ejection fraction is within the normal range. There is normal left ventricular wall thickness. T here is normal LV segmental wall motion. There is no ventricular septal defect visualized. LVEF is 55 -60%. Right Ventricle The right ventricle is normal size. The right ventricular systolic function is normal. The RVSP is 24 .1mmHg. Atria The left atrium size is normal. The right atrium size is normal. The interatrial septum is intact wit h no evidence for an atrial septal defect. Aortic Valve The aortic valve is normal in structure. Aortic valve is trileaflet. There is no aortic valvular sten osis. No aortic regurgitation is present. Mitral Valve Moderate mitral annular calcification. No evidence of mitral valve stenosis. Trace mitral regurgitati on. Tricuspid Valve The tricuspid valve is normal in structure. There is no tricuspid valve stenosis. Trace to mild tricu spid regurgitation. Pulmonic Valve The pulmonary valve is normal in structure. There is no pulmonic valvular stenosis. There is no pulmo jaleesa valvular regurgitation. Great Vessels The aortic root is normal in size. The ascending aorta is normal in size. Aortic arch is normal in ca liber. IVC is normal in size and collapses >50% with inspiration. Pericardium There is no pericardial effusion. 2D Dimensions IVSD d PLAX 1.10 cm M: 0.6-1.2 LV Vol A2C d MOD 62.7 mL LVPW d PLAX 1.10 cm M: 0.6 - 1.2 LV Vol A4C d MOD 85.5 mL LVID d PLAX 4.30 cm M: 4.2 - 5.8 LA vol/ BSA A2C s A-L 21.8 mL/m2 LVDs 3.18 cm M: 2.5 - 4.0 LA vol/ BSA A4C s A-L 29.5 mL/m2 Ao Root d 2.80 cm M: 3.1 - 3.7 LA Vol/ BSA Biplane s A-L 25.9 mL/m2 RA Area A4C 15.31 cm2 LA Area A4C s MOD 19.83 cm2 RA Vol/ BSA A4C s A-L 19.2 mL/m2 LA Area A2C s MOD 16.70 cm2 Ao Asc Diam d 3.47 cm M: 2.6 - 3.4 LV EF A4C MOD 50.2 % LV EF Teichholz 52.6 % LV EF A2C MOD 51.6 % LVEF (Gonzalez's) 50.24 % M: 52 - 72 LV EF Biplane MOD 50.2 % LV Volume 54.86 mL M: 62 - 150 SV 37.14 mL LV Volume Index 26.63 mL/m2 M: 34 - 74 SV Index 17.98 mL/m2 LV Vol Biplane MOD 73.9 mL M-Mode TAPSE 1.82 cm (M/F) >1.7 LV Diastology MV E' medial 0.056 (>0.07 m/s) E/A Ratio 0.7 LV E/e MED 14.50 (<14) MV E Vmax 0.81 (0.4-1.3 m/s) MV E' lateral 0.059 (>0.1 m/s) MV A Vmax 1.15 (0.4-1.3 m/s) LV E/e LAT 13.80 (<14) MV E/A Ratio 0.68 MV E/E' medial 14.55 MV E/E' lateral 13.82 Aortic Valve LVOT Area 3.23 cm2 AoV Area Vmax 2.62 cm2 LVOT Vmax 0.96 m/s AoV Area/ BSA (Vmax) 1.27 cm2/m2 LVOT Mean Scott. 0.62 m/s DRISS Mean Scott. 2.66 cm2 LVOT Peak Grad 3.7 mmHg DRISS Mean Scott. Index 1.29 cm2/m2 LVOT Mean Grad 1.8 mmHg LVOT VTI 0.185 m LVOT Diam s 2.00 cm AoV Vmax 1.19 m/s Velocity Ratio 0.80 AoV Mean Scott. 0.75 m/s AoV Peak Grad 5.7 mmHg LVOT SV 59.68 mL AoV Mean Grad 2.6 mmHg AoV VTI 0.230 m AoV Area VTI 2.59 cm2 AoV Area/ BSA (VTI) 1.26 cm/m2 Mitral Valve MV DT 211 (160-240 msec) MV PHT 61 msec MV Area PHT 3.59 cm2 MV VTI 0.304 m MV VTI Annulus 0.311 m MV Area VTI 2.01 (4.0-6.0 cm2) Pulmonary Valve PV Vmax 1.13 (0.5-1.5 m/s) RVOT Peak Gr. 3.49 mmHg PV Peak Grad 5.1 mmHg RVOT Mean Gr. 1.60 mmHg PV Mean Grad 2.5 mmHg RVOT VTI 0.175 m PV VTI 0.210 m RVOT Vmax 0.93 m/s Tricuspid Valve TR Peak Grad 21.1 mmHg TR Vmax 2.30 m/s RA Pressure 3.00 mmHg RVSP (TR) 24.1 mmHg
== END 2020-05-29 00:55 ==
PROVIDERS: PCP Nurse Practitioner; Visit Provider Nurse Practitioner
DX: E78.5 Hyperlipidemia, unspecified (principal); H53.8 Other visual disturbances; I10 Essential (primary) hypertension; I07.1 Rheumatic tricuspid insufficiency
CPT/HCPCS: 93306

== ENCOUNTER 2020-10-09 05:16 | Observation (INO) | payer BC, SELFPAY ==
[2020-10-09] VITALS (21 sets, daily range): BP systolic 121–163; BP diastolic 75–85; PULSE 70–94; RESP 10–26; TEMP 36.3–37.8; O2SAT 96–100
--- NOTE | 2020-10-09 | DI.US_ITS ---
APPROVED REPORT EXAM: Comprehensive 2D, Doppler, and color-flow Echocardiogram Patient Location: In-Patient Room/Bed: 228 Freezing Machine Operator: Corin Ortiz RDCS (AE) Indications: Syncopal episodes Other Information Study Quality: Adequate Conclusion Left Ventricle : The left ventricle is normal size. The left ventricular systolic function is normal. The left ventricular ejection fraction is within the normal range. There is normal left ventricular wall thickness. There is normal LV segmental wall motion. The diastolic function is abnormal. LVEF is 58%. Right Ventricle : The right ventricle is normal size. The right ventricular systolic function is norm al. The RVSP is 30.9 mmHg. Mitral Valve : Moderate mitral annular calcification. Trace mitral regurgitation. No evidence of mitr al valve stenosis. Great Vessels : The aortic root is normal in size. The ascending aorta is normal in size. Aortic arch is normal in caliber. IVC is normal in size and collapses >50% with inspiration. Please see remainder of study for further details. Wall motion Left Ventricle The left ventricle is normal size. The left ventricular systolic function is normal. The left ventric ular ejection fraction is within the normal range. There is normal left ventricular wall thickness. T here is normal LV segmental wall motion. The diastolic function is abnormal. There is no ventricular septal defect visualized. LVEF is 58%. Right Ventricle The right ventricle is normal size. The right ventricular systolic function is normal. The RVSP is 30 .9 mmHg. Atria The left atrium size is normal. The right atrium size is normal. The interatrial septum is intact wit h no evidence for an atrial septal defect. Aortic Valve The aortic valve is normal in structure. There is no aortic valvular stenosis. No aortic regurgitatio n is present. Mitral Valve Moderate mitral annular calcification. No evidence of mitral valve stenosis. Trace mitral regurgitati on. Tricuspid Valve The tricuspid valve is normal in structure. There is no tricuspid valve stenosis. Trace to mild tricu spid regurgitation. Pulmonic Valve The pulmonary valve is normal in structure. There is no pulmonic valvular stenosis. Trace pulmonic re gurgitation. Great Vessels The aortic root is normal in size. The ascending aorta is normal in size. Aortic arch is normal in ca liber. IVC is normal in size and collapses >50% with inspiration. Pericardium There is no pericardial effusion. 2D Dimensions IVSD d PLAX 1.00 cm M: 0.6-1.2 LV Vol A2C d MOD 95.6 mL LVPW d PLAX 1.01 cm M: 0.6 - 1.2 LV Vol A4C d MOD 94.7 mL LVID d PLAX 5.03 cm M: 4.2 - 5.8 LA vol/ BSA A2C s A-L 31.5 mL/m2 LVDs 3.55 cm M: 2.5 - 4.0 LA vol/ BSA A4C s A-L 28.6 mL/m2 Ao Root d 2.88 cm M: 3.1 - 3.7 LA Vol/ BSA Biplane s A-L 30.2 mL/m2 RA Area A4C 16.17 cm2 LA Area A4C s MOD 19.88 cm2 RA Vol/ BSA A4C s A-L 20.4 mL/m2 LA Area A2C s MOD 20.77 cm2 Ao Asc Diam d 3.42 cm M: 2.6 - 3.4 LV EF A4C MOD 58.3 % LV EF Teichholz 55.1 % LV EF A2C MOD 58.0 % LVEF (Gonzalez's) 58.54 % M: 52 - 72 LV EF Biplane MOD 58.5 % LV Volume 70.79 mL M: 62 - 150 SV 56.42 mL LV Volume Index 33.23 mL/m2 M: 34 - 74 SV Index 26.47 mL/m2 LV Vol Biplane MOD 96.4 mL FS 28.75 % M-Mode TAPSE 2.04 cm (M/F) >1.7 LV Diastology MV E' medial 0.062 (>0.07 m/s) E/A Ratio 0.9 LV E/e MED 17.50 (<14) MV E Vmax 1.08 (0.4-1.3 m/s) MV E' lateral 0.084 (>0.1 m/s) MV A Vmax 1.25 (0.4-1.3 m/s) LV E/e LAT 12.80 (<14) MV E/A Ratio 0.84 MV E/E' medial 17.51 MV E/E' lateral 12.83 Aortic Valve LVOT Area 3.46 cm2 AoV Area Vmax 2.50 cm2 LVOT Vmax 1.06 m/s AoV Area/ BSA (Vmax) 1.18 cm2/m2 LVOT Mean Scott. 0.72 m/s DRISS Mean Scott. 2.47 cm2 LVOT Peak Grad 4.5 mmHg DRISS Mean Scott. Index 1.16 cm2/m2 LVOT Mean Grad 2.4 mmHg LVOT VTI 0.234 m LVOT Diam s 2.05 cm AoV Vmax 1.46 m/s Velocity Ratio 0.72 AoV Mean Scott. 1.00 m/s AoV Peak Grad 8.5 mmHg LVOT SV 80.82 mL AoV Mean Grad 4.6 mmHg AoV VTI 0.254 m AoV Area VTI 3.19 cm2 AoV Area/ BSA (VTI) 1.49 cm/m2 Mitral Valve MV DT 178 (160-240 msec) MV PHT 52 msec MV Area PHT 4.26 cm2 MV VTI 0.307 m MV VTI Annulus 0.321 m MV Area VTI 2.76 (4.0-6.0 cm2) Pulmonary Valve PV Vmax 1.09 (0.5-1.5 m/s) RVOT Peak Gr. 2.02 mmHg PV Peak Grad 4.8 mmHg RVOT Mean Gr. 1.00 mmHg PV Mean Grad 2.6 mmHg RVOT VTI 0.132 m PV VTI 0.231 m RVOT Vmax 0.71 m/s Tricuspid Valve TR Peak Grad 27.8 mmHg TR Vmax 2.64 m/s RA Pressure 3.00 mmHg RVSP (TR) 30.9 mmHg
--- NOTE | 2020-10-09 05:15 | RT.EKG_ITS ---
APPROVED REPORT Exam: Resting ECG Reason for Exam: DIZZINESS/SYNCOPE Patient Location: E HR:67 bpm ECG Measurements Heart Rate 67 AXIS NH 188 P 22 QRSd 84 QRS 37 QT 419 T 36 QTc 444 Conclusion Sinus rhythm...normal P axis, V-rate 60- 99 Normal [place] I have reviewed and interpreted ECG and agree with software generated interpretation.
--- NOTE | 2020-10-09 05:40 | ED.GENADUL_ITS ---
Discharge Plan Disposition Patient Disposition: [facility] INPATIENT Condition: Stable Discharge Details Clinical Impression: Syncope Primary Care Provider: Alondra Pedersen ED Provider: Chase Rowell Meds and New Rx's Prescriptions: No Action triamcinolone acetonide 0.1 % cream 1 applic Topical BID Qty: 454 RF: 3 sildenafil [Viagra] 50 mg tablet 50 mg PO DAILY PRN (Reason: sexual activity) Qty: 14 RF: 5 triamcinolone acetonide 0.5 % cream 1 applic TP .BID-QID Qty: 15 RF: 0 losartan 100 mg tablet 100 mg PO DAILY Qty: 90 RF: 3 pravastatin 40 mg tablet 40 mg PO DAILY Qty: 90 RF: 3 levothyroxine 50 mcg tablet 50 mcg PO DAILY Qty: 90 RF: 3 Medical Decision Making Middle-aged gentleman presenting with 2 syncopal events at home. Still feels lightheaded. Normal heart rate and blood pressure here. Normal neurologic exam. No complaint of vertigo. No complaint of chest pain or shortness of breath. He is collared because of complaint of posterior neck pain presumably related to falling when he passed out. EKG sinus rhythm with normal axis no ST changes. Head and cervical spine CT scan ordered. Laboratory studies ordered. 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 Will need admission for telemetry monitoring and further work-up of his syncopal event pending imaging and laboratory return. Laboratory studies significant for slightly low magnesium at 1.6 and slightly elevated potassium at 5.3. He has normal kidney function. He has a normal hemoglobin. Troponin is negative. CT head and cervical spine negative for acute findings. Cervical collar removed. Orthostatics obtained and negative though patient symptomatic and feels lightheaded. There has been no telemetry arrhythmia here. Case discussed with hospitalist for observation admission due to 2 syncopal events at home. Patient and aware of need for admission and are agreeable. Hospitalist has accepted the patient for admission. Lab Data Lab results reviewed: Yes I reviewed the patient's lab results. ECG Data Attestation: I personally reviewed and interpreted this ECG (s) as follows: Prior ECG tracings: not available for review Interpretation: see EKG HPI General Mode of arrival: EMS . Date/Time Provider Initiated Documentation: 10/09/20 05:40 . Limitations to Documentation: no limitations . Information obtained by: patient . HPI Narrative: Patient presents to ED by ambulance after syncopal event at home. Patient reports feeling fine going to bed last night. He has not been ill. He has had no fever, vomiting, diarrhea. He has been eating and drinking without issues. Got up early in the morning to go to the bathroom. [place] extremely lightheaded and thinks he passed out once out of bed. Remembers getting up and making it to the bathroom where he subsequently passed out again. found him on the floor and called 911. Patient subsequently has had no further syncopal events. Continues to feel lightheaded. Has slight posterior head and neck discomfort. Denies any neurologic symptomatology. Denies vertigo or spinning sensation. Denies any chest pain, palpitations, shortness of breath. No previous history of syncope although he has had episodes of lightheadedness. Related Data Home Medications Medication Instructions Recorded Confirmed triamcinolone acetonide 0.1 % 1 applic TOPICAL BID #454 gm 03/01/19 10/09/20 topical cream triamcinolone acetonide 0.5 % 1 applic TP .BID-QID #15 gm 10/17/19 05/01/20 topical cream sildenafil 50 mg tablet 50 mg PO DAILY PRN #14 tab-cap 12/13/19 10/09/20 losartan 100 mg tablet 100 mg PO DAILY #90 tab 12/19/19 10/09/20 pravastatin 40 mg tablet 40 mg PO DAILY #90 tab-cap 06/04/20 10/09/20 levothyroxine 50 mcg tablet 50 mcg PO DAILY #90 tab 09/12/20 10/09/20 Previous Rx's Medication Instructions Recorded triamcinolone acetonide 0.1 % 1 applic TOPICAL BID #454 gm 03/01/19 topical cream triamcinolone acetonide 0.5 % 1 applic TP .BID-QID #15 gm 10/17/19 topical cream sildenafil 50 mg tablet 50 mg PO DAILY PRN #14 tab-cap 12/13/19 losartan 100 mg tablet 100 mg PO DAILY #90 tab 12/19/19 pravastatin 40 mg tablet 40 mg PO DAILY #90 tab-cap 06/04/20 levothyroxine 50 mcg tablet 50 mcg PO DAILY #90 tab 09/12/20 Allergies Allergy/AdvReac Type Severity Reaction Status Date / Time lisinopril AdvReac Intermediate cough Verified 10/09/20 05:29 tamsulosin AdvReac Mild liteheaded Verified 10/09/20 05:29 aspirin AdvReac gi upset Verified 10/09/20 05:29 General Stated Complaint: Dizzy/Sync AARON: 2 Review of Systems Narrative: 02/21 Review of Systems completed and is negative except as stated above in HPI (Systems reviewed: Const, Eyes, ENT, Resp, CV, GI, , MSK, Skin, Neuro) [facility] Medical History (Updated 10/09/20 @ 07:19 by Chase Rowell MD) Acute right-sided low back pain with right-sided sciatica (02/04/17) Sudden, 02/02/17, when getting out of car after 3/4 hr ride. No sudden twist or injury asociated. Hx lower back pain, sciatica, after lifting/pulling out a dock (?) form the water .. resolved. No imaging. 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 d/w pt, but no memory of injury/trauma aside from sciatica @ 2 years earlier from pulling a weight. No known mva or fall. Possible osteoporosis? > doubtful, not osteoporotic XR. 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 CT neck with contrast ordered by ENT Tubular adenoma 2014 colo tubular adenoma, repeated 01/07/19 Dr Daisy Bey - no biopsies, normal, repeat five years due to personal history precancerous polyps. Xerosis of skin (06/14/15) Surgical History Colonoscopy w/ BX (02/01/15) History of biopsy (09/14/18) laryngeal mass-Dr Quintero [facility] Family History Mother Essential hypertension Colon cancer Father Essential hypertension Stroke Brother No problems noted. Social History Smoking/Tobacco Use Status: Former Tobacco Use Quit Date: 10/09/17 Tobacco: How many years used: 40 Smoking risk assessment performed?: Yes Alcohol Intake: current Alcohol Intake frequency: 3 or more drinks per day Alcohol type: beer Drug use: Never Substance use type: does not use Details: 2-3 12 oz bottles of beer a night. 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 HEENT: NC/AT. Normal facial exam. Eyes: PERRL and EOMI. Neck: Trachea midline. Minimal posterior cervical spine tenderness. Lungs: Normal respiratory effort. Lungs are clear. Cor: RRR without murmur/gallop. Good radial pulses. GI: Soft. NT/ND. No guarding or rebound Neuro: A+O x 3. Normal speech, mentation. Cranial nerves II - XII grossly intact. No gross motor or sensory deficit. Ext: No C/C/E. No calf tenderness. Skin: Warm and dry without rash. Course Vital Signs Vital signs: Vital Signs Temperature 97.3 F L 10/09/20 05:21 Pulse 77 10/09/20 05:21 Respiratory Rate 10 L 10/09/20 05:21 Blood Pressure 123/76 10/09/20 05:21 Pulse Oximetry 100 10/09/20 05:21 Temperature 97.3 F L 10/09/20 05:21 Temperature Source Skin 10/09/20 05:21 Pulse 77 10/09/20 05:21 Respiratory Rate 16 10/09/20 05:32 Respiratory Effort 10/09/20 05:32 Respiratory Depth Normal 10/09/20 05:32 Respiratory Pattern Normal 10/09/20 05:32 Blood Pressure 123/76 10/09/20 05:21 Blood Pressure Position Supine 10/09/20 05:21 Pulse Oximetry 100 10/09/20 05:21 Oxygen Delivery Method Room Air 10/09/20 05:21 Oxygen Flow Rate 0 10/09/20 05:21 Pain Level 6 10/09/20 05:21
--- NOTE | 2020-10-09 05:45 | DI.CT_ITS ---
Exam(s) CT HEAD CERVICAL SPINE WO EXAM: CT HEAD CERVICAL SPINE WO COMPARISON: No exams were available for comparison FINDINGS: CT examination of the cervical spine was performed without contrast administration. There are moderate degenerative changes of the cervical spine. There is no evidence of acute cervical spine fracture or dislocation. Intervertebral disc spaces are well maintained. Tracheolaryngeal structures appear intact. No cervical mass or adenopathy. Noncontrast cranial CT was performed. There mild changes of cerebral atrophy. No evidence of acute intracranial hemorrhage, mass effect, or midline shift. No calvarial fracture. The orbital and temporal bone structures appear intact. Visualized mastoid air cells and paranasal sinuses appear clear. IMPRESSION: No evidence of acute cervical spine injury. No evidence of acute intracranial injury. RADIATION DOSE DELIVERED: 2,248.88mGy.cm Total DLP 2,248.88mGy.cm Total DLP DATA REPOSITORY: All CT scans at this facility are submitted to the National Radiology Data Registry (NRDR) Dose Index Registry (DIR) with the [employer] (A[employer]). RADIATION OPTIMIZATION: All CT scans at this facility use at least one of these dose optimization te chniques: automated exposure control; mA and/or kV adjustment per patient size (includes targeted exa ms where dose is matched to clinical indication); or iterative reconstruction.
[2020-10-09 05:57] LABS: Abs Immature Grans 0.04 10^3/uL (0.0-0.06); Absolute Basophil Count 0.07 10^3/uL (0.0-0.2); Absolute Eosinophil Count 0.08 10^3/uL (0.0-0.7); Absolute Monocyte Count 0.48 10^3/uL (0.1-0.8); Basophils % 0.9; HCT 36.7 % (40.0-50.0); Immature Grans % 0.5; Lymphocytes % 7.6; MCH 33.8 pg (27.0-33.0); MCHC 35.4 % (32.0-36.0); MCV 95.3 fL (80-95); MPV 9.4 fL (8.0-11.0); Monocytes % 6.1; Neutrophils % 83.9; Nucleated RBC 0 %; Platelet Count 189 10^3/uL (130-400); RBC 3.85 10^6/uL (4.36-5.78); RDW 13.1 % (11.8-14.1); WBC 7.87 10^3/uL (4.4-10.8)
[2020-10-09] MEDS: Normal Saline 1,000 ML 1000 ML IV (06:00)
[2020-10-09 06:14] LABS: ALT 41 U/L (16-63); AST 16 U/L (15-37); Albumin 3.6 g/dL (3.4-5.0); Alkaline Phosphatase 60 U/L (46-116); Anion Gap 7.2 mmol/L (3-11); BUN 11 mg/dL (7-18); Bilirubin, Total 0.6 mg/dL (0.2-1.0); CO2 27.8 mmol/L (21.0-32.0); CREATININE 1.1 mg/dL (0.70-1.30); Calcium 8.6 mg/dL (8.5-10.1); Chloride 99 mmol/L (98-107); Glucose 132 mg/dL (74-106); Magnesium 1.6 mg/dL (1.8-2.4); Potassium 5.3 mmol/L (3.5-5.1); Sodium 134 mmol/L (136-145); Total Protein 6.5 g/dL (6.4-8.2)
[2020-10-09 06:17] LABS: Troponin I < 0.05 ng/mL (<0.06)
[2020-10-09] MEDS: MAGNESIUM SULFATE 2 GM/50 ML BAG IVPB (06:38)
--- NOTE | 2020-10-09 06:54 | DI.VRAD_ITS ---
PROCEDURE INFORMATION: Exam: CT Head Without Contrast Exam date and time: 10/09/2020 5:50 AM Age: 64 years old Clinical indication: Other: Syncope/fall with posterior head/neck pain TECHNIQUE: Imaging protocol: Computed tomography of the head without contrast. COMPARISON: No relevant prior studies available. FINDINGS: Brain: Normal. No hemorrhage. Unremarkable white matter. No mass effect. Cerebral ventricles: No ventriculomegaly. Paranasal sinuses: Visualized sinuses are unremarkable. No fluid levels. Mastoid air cells: Visualized mastoid air cells are well aerated. Bones/joints: Unremarkable. No acute fracture. Soft tissues: Unremarkable. IMPRESSION: No acute intracranial abnormality. PROCEDURE INFORMATION: Exam: CT Cervical Spine Without Contrast Exam date and time: 10/09/2020 5:50 AM Age: 64 years old Clinical indication: Other: Syncope/fall with posterior head/neck pain TECHNIQUE: Imaging protocol: Computed tomography images of the cervical spine without contrast. Radiation optimization: All CT scans at this facility use at least one of these dose optimization techniques: automated exposure control; mA and/or kV adjustment per patient size (includes targeted exams where dose is matched to clinical indication); or iterative reconstruction. COMPARISON: No relevant prior studies available. FINDINGS: Vertebrae: Cervical degenerative disc disease and facet joint arthropathy noted. No evidence for fracture, dislocation or subluxation. Soft tissues: Unremarkable. IMPRESSION: No acute findings Dictated and Authenticated by: Deandre Garsia MD. Ordering:SILVANA Stone MD
[2020-10-09 08:08] LABS: Creatine Kinase 109 U/L (39-308); TSH 7.64 uIU/mL (0.36-3.74)
[2020-10-09 09:05] LABS: Source Nasal/Nares
[2020-10-09] MEDS: Normal Saline 1,000 ML 150 ML IV ×3 (09:16→23:43)
[2020-10-09 10:04] LABS: Bilirubin Negative (Negative); Blood Negative (Negative); Clarity Clear (Clear); Glucose Negative (Negative); Ketones Negative (Negative); Leukocyte Esterase Negative (Negative); Nitrite Negative (Negative); Urobilinogen 0.2 EU/dL (Up TO 0.2); pH 6.5 (5-8)
[2020-10-09 10:06] LABS: Troponin I < 0.05 ng/mL (<0.06)
[2020-10-09] MEDS: THIAMINE 100 MG in Normal Saline 100 ML 200 MG IVPB (10:30)
[2020-10-09] MEDS: Thiamine 100 MG TAB PO (10:31)
[2020-10-09] MEDS: Folic Acid 1 MG TAB PO (10:31)
[2020-10-09] MEDS: Multivitamin TAB 1 TAB PO (10:31)
[2020-10-09 10:36] LABS: D-Dimer 278 ng/mlFEU (<500)
[2020-10-09 11:19] LABS: COVID-19 PCR Negative (Negative)
--- NOTE | 2020-10-09 11:59 | INITIAL_ITS ---
- If Service Date Differs Date of service: 10/09/20 Time of Service: 11:59 Care Management Initial Assess REASON FOR HOSPITALIZATION:: Two syncopal episodes PAST MEDICAL HISTORY/PAST SURGICAL HISTORY:: Medical History. Acute right-sided low back pain with right-sided sciatica (02/04/17). Sudden, 02/02/17, when getting out of car after 3/4 hr ride. No sudden twist or injury asociated. Hx lower back pain, sciatica, after lifting/pulling out a dock (?) form the water .. resolved. No imaging. 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 Benign prostatic hyperplasia (09/28/13). Chondrocalcinosis (04/16/16). R knee. Compression fracture of body of thoracic vertebra (02/04/17). Per XR, 02/04/17.. d/w pt, but no memory of injury/trauma aside from sciatica @ 2 years earlier from pulling a weight. No known mva or fall. Possible osteoporosis? > doubtful, not osteoporotic XR. d/w RAD suggests FU with MRI (T12-S1) to evaluate degen/pathology. Diverticulosis. Essential hypertension (03/24/13). FRS 18%. 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 ? dx: clinical L foot, R knee 07/2015 positive urate crystals. Hoarseness. 09/06/18 Dr Quintero. Hyperlipidemia. Hypothyroidism. Impotence (07/28/12). Laryngeal cancer (12/31/17). sees Dr Quintero [place] [facility] [place]. 09/14/18 biosy of L sided laryngeal mass found on PET/CT done at [facility]--dysplagia found but neg for obvious malignancy-from 09/27/18 Hem/Onc notes. 12/16/18- PET/CT:no evidence for regional estela or distant metastasis. [facility] note dated 01/24/19. Other and unspecified hyperlipidemia (07/28/11). PCEq 21.1%; LDL baseline 168. Other and unspecified hyperlipidemia (07/28/11). PCEq 21.1%; LDL baseline 168. Pressure sensation in left ear. 09/06/18 Dr Quintero and flexible Fiberoptic Laryngoscopy done. 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 biopsy by Dr Ponce 10/29/17 . radiation therapy 12/2017. Initial radiation therapy 12/24/17. Tobacco use disorder (07/25/11). Tonsillar mass (09/22/17). [facility]- both tonsilar and oropharyngeal masses. CT neck with contrast ordered by ENT. Tubular adenoma. 2014 colo tubular adenoma, repeated 01/07/19 Dr Daisy Bey - no biopsies, normal, repeat five years due to personal history precancerous polyps. Xerosis of skin (06/14/15). Surgical History. Colonoscopy w/ BX (02/01/15). History of biopsy (09/14/18). laryngeal mass-Dr Quintero [facility] PREVIOUS FUNCTIONAL STATUS/SOCIAL/FAMILY SUPPORTS:: Kodak lives in [facility] with his fiance, Jessica. They are scheduled to be in November after dating for 15 years. 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 He is independent at baseline. CURRENT FUNCTIONAL STATUS:: Kodak was sitting up in bed when CM met with him. He reported that he is feeling better than when he arrived. Per report, he may be ready for discharge tomorrow. He is currently on CIWA precautions. ADVANCE DIRECTIVES:: None on file. CM will offer forms. Has patient been provided with info about the portal/API?: Yes Did the patient sign up for the portal?: No CODE STATUS:: Full Code INSURANCE COVERAGE / FINANCIAL ISSUES:: BCBS CURRENT HOME/COMMUNITY SERVICES/EQUIPMENT:: No current services or equipment. PRIMARY CARE PHYSICIAN:: Alondra Pedersen POTENTIAL DISCHARGE NEEDS:: Follow up appointment with PCP. PATIENT/FAMILY EDUCATION NEEDS:: Review discharge instructions, discussion of self care needs including ask me three. ANTICIPATED BARRIERS TO DISCHARGE:: None identified. TRANSPORTATION:: Via private vehicle by family. PLAN:: Anticipate Kodak will return home when medically cleared. His will drive him home via private vehicle. He will follow up with his PCP and discharge plan of care. CM will continue to follow.
--- NOTE | 2020-10-09 13:40 | HPE_ITS ---
Date of service: 10/09/20 Time of Service: 13:40 Assessment and Plan Assessment and plan (1) Syncope: Status: Chronic Assessment and plan: referred to observation telemetry cycle serial troponin echo pending. orthostatic vitals (2) Hypothyroidism: Status: Chronic Assessment and plan: TSH 7.64 continue synthroid (3) Alcohol use disorder: Status: Acute Assessment and plan: [facility] protocol thiamine daily replete magnesium cessation discussed. (4) Hyperlipidemia: Status: Acute Assessment and plan: continue pravastatin (5) Hypertension: Status: Chronic Assessment and plan: blood pressure stable monitor continue losartan (6) Discharge planning issues: Status: Acute Assessment and plan: anticipate discharge to home with no services discussed with Dr Hardy History of Present Illness History of Present Illness Chief Complaint: syncope Narrative: Patient presents to ED by ambulance after 2 reported syncopal event at home. Patient reports feeling fine going to bed last night. He has not been ill. He has had no fever, vomiting, diarrhea. He has been eating and drinking without issues. Got up early in the morning to go to the bathroom. [place] extremely lightheaded and thinks he passed out once out of bed. Remembers getting up and making it to the bathroom where he subsequently passed out again. found him on the floor and called 911. Patient subsequently has had no further syncopal events. Denies any chest pain, palpitations, shortness of breath. No previous history of syncope although he has had episodes of lightheadedness. His work up was unremarkable and he was referred to observation for syncope work up. Review of Systems All systems reviewed & are unremarkable except as noted in HPI and below PFSH Medical History (Updated 10/09/20 @ 13:49 by Susan Charles NP) Acute right-sided low back pain with right-sided sciatica (02/04/17) Sudden, 02/02/17, when getting out of car after 3/4 hr ride. No sudden twist or injury asociated. Hx lower back pain, sciatica, after lifting/pulling out a dock (?) form the water .. resolved. No imaging. 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 d/w pt, but no memory of injury/trauma aside from sciatica @ 2 years earlier from pulling a weight. No known mva or fall. Possible osteoporosis? > doubtful, not osteoporotic XR. 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 dx: clinical L foot, R knee 07/2015 positive urate crystals Hoarseness 09/06/18 Dr Quintero Hyperlipidemia Hypothyroidism Impotence (07/28/12) Laryngeal cancer (12/31/17) sees [place] Quintero [place] [facility] 09/14/18 biosy of L sided laryngeal mass found on PET/CT done [place] [facility] [place]dysplagia found but neg for obvious malignancy-from 09/27/18 Hem/Onc not es 12/16/18- PET/CT:no evidence for regional estela or distant metastasis. 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 CT neck with contrast ordered by ENT Tubular adenoma 2014 colo tubular adenoma, repeated 01/07/19 Dr Daisy Bey - no biopsies, normal, repeat five years due to personal history precancerous polyps. Xerosis of skin (06/14/15) Surgical History Colonoscopy w/ BX (02/01/15) History of biopsy (09/14/18) laryngeal mass-Dr Quintero [facility] Family History Mother Essential hypertension Colon cancer Father Essential hypertension Stroke Brother No problems noted. Social History Smoking/Tobacco Use Status: Former Tobacco Use Quit Date: 10/09/17 Tobacco: How many years used: 40 Smoking risk assessment performed?: Yes Alcohol Intake: current Alcohol Intake frequency: 3 or more drinks per day Alcohol type: beer Drug use: Never Substance use type: does not use Details: 2-3 12 oz bottles of beer a night. 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 What type of physical activity do you participate in: walking Duration: 45-60 minutes/day Frequency: 3-4 times per week Seatbelt use: always Working smoke detector in home: Yes Fire extinguisher in home: Yes Carbon monox detector in home: Yes Do you feel safe at home: Yes Do you feel safe in your relationship?: Yes Meds Allergies and Home Medications Allergies Allergy/AdvReac Type Severity Reaction Status Date / Time lisinopril AdvReac Intermediate cough Verified 10/09/20 05:29 tamsulosin AdvReac Mild liteheaded Verified 10/09/20 05:29 aspirin AdvReac gi upset Verified 10/09/20 05:29 Home Medications Medication Instructions Recorded Confirmed Type triamcinolone acetonide 0.1 % 1 applic TOPICAL BID #454 gm 03/01/19 10/09/20 Rx topical cream triamcinolone acetonide 0.5 % 1 applic TP .BID-QID #15 gm 10/17/19 05/01/20 Rx topical cream sildenafil 50 mg tablet 50 mg PO DAILY PRN #14 tab-cap 12/13/19 10/09/20 Rx losartan 100 mg tablet 100 mg PO DAILY #90 tab 12/19/19 10/09/20 Rx pravastatin 40 mg tablet 40 mg PO DAILY #90 tab-cap 06/04/20 10/09/20 Rx levothyroxine 50 mcg tablet 50 mcg PO DAILY #90 tab 09/12/20 10/09/20 Rx Exam Narrative Exam Narrative: Const: white male in NAD, pink warm dry and well perfused HEENT: NC/AT. Normal facial exam. Eyes: PERRL and EOMI. nonicteric Neck: Trachea midline. supple. Lungs: Respirations even and unlabored. Lungs are clear to auscultation. Cor: RRR no murmur. Good radial pulses, well perfused. GI: Soft. non tender, positive bowel sounds. Neuro: A+O x 3. Normal speech, mentation. Cranial nerves II - XII grossly intact. No gross motor or sensory deficit. Ext: moves all extremities, no edema No calf tenderness. Skin: Warm and dry without rash. Results Labs Result diagrams: 10/09/20 05:43 10/09/20 14:00 Labs: Laboratory Results - last 24 hr 10/09/20 10/09/20 10/09/20 05:43 05:43 05:43 WBC 7.87 RBC 3.85 L Hgb 13.0 L Hct 36.7 L MCV 95.3 H MCH 33.8 H MCHC 35.4 RDW 13.1 Plt Count 189 MPV 9.4 Immature Gran % 0.5 Neutrophils % 83.9 Lymphocytes % 7.6 Monocytes % 6.1 Eosinophils % 1.0 Basophils % 0.9 Nucleated RBC % 0 Absolute Neutrophils 6.60 Absolute Lymphocytes 0.60 L Absolute Monocytes 0.48 Absolute Eosinophils 0.08 Absolute Basophils 0.07 D-Dimer Sodium 134 L Potassium 5.3 H Chloride 99 Carbon Dioxide 27.8 Anion Gap 7.2 BUN 11 Creatinine 1.1 Estimated GFR/1.73 m2 >= 60.00 Glucose 132 H Calcium 8.6 Magnesium 1.6 L Total Bilirubin 0.6 AST 16 ALT 41 Alkaline Phosphatase 60 Creatine Kinase 109 Troponin I < 0.05 Total Protein 6.5 Albumin 3.6 TSH 7.64 H Urine Color Urine Clarity Urine pH Ur Specific [place] Urine Protein Urine Ketones Urine Blood Urine Nitrite Urine Bilirubin Urine Urobilinogen Ur Leukocyte Esterase Urine Glucose COVID-19 Source SARS-CoV-2 (PCR) 10/09/20 10/09/20 10/09/20 05:43 08:59 09:35 WBC RBC Hgb Hct MCV MCH MCHC RDW Plt Count MPV Immature Gran % Neutrophils % Lymphocytes % Monocytes % Eosinophils % Basophils % Nucleated RBC % Absolute Neutrophils Absolute Lymphocytes Absolute Monocytes Absolute Eosinophils Absolute Basophils D-Dimer 278 Sodium Potassium Chloride Carbon Dioxide Anion Gap BUN Creatinine Estimated GFR/1.73 m2 Glucose Calcium Magnesium Total Bilirubin AST ALT Alkaline Phosphatase Creatine Kinase Troponin I < 0.05 Total Protein Albumin TSH Urine Color Urine Clarity Urine pH Ur Specific [place] Urine Protein Urine Ketones Urine Blood Urine Nitrite Urine Bilirubin Urine Urobilinogen Ur Leukocyte Esterase Urine Glucose COVID-19 Source Nasal/nares SARS-CoV-2 (PCR) Negative 10/09/20 09:45 WBC RBC Hgb Hct MCV MCH MCHC RDW Plt Count MPV Immature Gran % Neutrophils % Lymphocytes % Monocytes % Eosinophils % Basophils % Nucleated RBC % Absolute Neutrophils Absolute Lymphocytes Absolute Monocytes Absolute Eosinophils Absolute Basophils D-Dimer Sodium Potassium Chloride Carbon Dioxide Anion Gap BUN Creatinine Estimated GFR/1.73 m2 Glucose Calcium Magnesium Total Bilirubin AST ALT Alkaline Phosphatase Creatine Kinase Troponin I Total Protein Albumin TSH Urine Color Yellow Urine Clarity Clear Urine pH 6.5 Ur Specific [place] 1.020 Urine Protein Negative Urine Ketones Negative Urine Blood Negative Urine Nitrite Negative Urine Bilirubin Negative Urine Urobilinogen 0.2 Ur Leukocyte Esterase Negative Urine Glucose Negative COVID-19 Source SARS-CoV-2 (PCR) Last Vital Signs Temp 36.6 C 10/09/20 11:48 Pulse 70 10/09/20 11:48 Resp 17 10/09/20 11:48 BP 130/80 10/09/20 11:48 Pulse Ox 99 10/09/20 11:48 COVID-19 Screening Have you, or household traveled for leisure in last 14 days?: No Had IN PERSON contact w/suspected or confirmed C-19 person: No
[2020-10-09 14:28] LABS: Anion Gap 6.2 mmol/L (3-11); BUN 13 mg/dL (7-18); CO2 28.8 mmol/L (21.0-32.0); CREATININE 1.5 mg/dL (0.70-1.30); Calcium 8.7 mg/dL (8.5-10.1); Chloride 100 mmol/L (98-107); Estimated GFR 46.97 (mL/min/1.73m2); Glucose 120 mg/dL (74-106); Potassium 4.6 mmol/L (3.5-5.1); Sodium 135 mmol/L (136-145)
[2020-10-09 14:37] LABS: Troponin I < 0.05 ng/mL (<0.06)
[2020-10-10 06:25] VITALS: BP 125/81; PULSE 76; RESP 18; TEMP 36.6; O2SAT 96
[2020-10-10 06:26] LABS: Abs Immature Grans 0.01 10^3/uL (0.0-0.06); Absolute Basophil Count 0.05 10^3/uL (0.0-0.2); Absolute Eosinophil Count 0.13 10^3/uL (0.0-0.7); Absolute Lymphocyte Count 0.76 10^3/uL (1.2-3.4); Absolute Monocyte Count 0.46 10^3/uL (0.1-0.8); Absolute Neutrophil Count 4.19 10^3/uL (1.2-6.7); Basophils % 0.9; Eosinophils % 2.3; HCT 35.8 % (40.0-50.0); HGB 12.4 g/dL (13.5-17.5); Immature Grans % 0.2; Lymphocytes % 13.6; MCH 33.4 pg (27.0-33.0); MCHC 34.6 % (32.0-36.0); MCV 96.5 fL (80-95); MPV 9.2 fL (8.0-11.0); Monocytes % 8.2; Neutrophils % 74.8; Nucleated RBC 0 %; Platelet Count 182 10^3/uL (130-400); RBC 3.71 10^6/uL (4.36-5.78); RDW 13.2 % (11.8-14.1); RDW-SD 47.4 fL
[2020-10-10] MEDS: Normal Saline 1,000 ML 150 ML IV (06:26)
[2020-10-10 06:51] LABS: Anion Gap 8.9 mmol/L (3-11); BUN 9 mg/dL (7-18); CO2 24.1 mmol/L (21.0-32.0); Chloride 104 mmol/L (98-107); Glucose 111 mg/dL (74-106); Magnesium 1.7 mg/dL (1.8-2.4); Potassium 4.2 mmol/L (3.5-5.1); Sodium 137 mmol/L (136-145)
[2020-10-10 07:00] VITALS: PULSE 69
[2020-10-10 07:27] VITALS: BP 135/86; PULSE 78; RESP 18; TEMP 36.2; O2SAT 97
[2020-10-10] MEDS: Multivitamin TAB 1 TAB PO (08:17)
[2020-10-10] MEDS: Thiamine 100 MG TAB PO (08:17)
[2020-10-10] MEDS: Folic Acid 1 MG TAB PO (08:17)
[2020-10-10 09:11] LABS: Calculated LDL 83 mg/dL (<100); Cholesterol 153 mg/dL (<200); HDL Cholesterol 35 mg/dL (40-60); Triglyceride 179 mg/dL (<150)
[2020-10-10] MEDS: Losartan 50 MG TAB 100 MG PO (09:53)
[2020-10-10] MEDS: Levothyroxine 50 MCG TAB PO (11:07)
[2020-10-10 11:26] VITALS: BP 147/89; PULSE 76; RESP 18; TEMP 36.6
--- NOTE | 2020-10-10 12:03 | W.PM.DS.N ---
Date of service: 10/10/20 Time of Service: 12:03 DS: Diagnosis Discharge Diagnosis (1) Syncope: Status: Chronic (2) Hypothyroidism: Status: Chronic (3) Alcohol use disorder: Status: Acute (4) Hyperlipidemia: Status: Acute (5) Hypertension: Status: Chronic Discharge Plan Disposition Patient Disposition: HOME Condition: Stable Discharge Details Reason For Visit: Two Syncopal Episodes Admit Date/Time: 10/09/20 07:24 Admit Provider: Vero Hardy Attending Provider: Vero Hardy Primary Care Provider: Alondra Pedersen [facility] Hospital Course: This is a 64 year old male with history of alcohol use, hypothyroidism who presents to ED by ambulance after 2 reported syncopal event at home. Patient reports feeling fine going to bed. He denies recent illness and has had no fever, vomiting, diarrhea. He reports he's been eating and drinking without issues. He got up during the night to go to the bathroom. [place] extremely lightheaded and thinks he passed out once out of bed. Remembers getting up and making it to the bathroom where he subsequently passed out again. found him on the floor and called 911. Patient subsequently has had no further syncopal events. Denied any chest pain, palpitations, shortness of breath. No previous history of syncope although he has had episodes of lightheadedness. His work up was unremarkable and he was referred to observation for syncope work up. while on med/surg he remained asymptomatic. he was hemodynamically stable. on telemetry he remained in normal sinus rhythm. his echo showed normal LV segmental wall motion. The diastolic function is abnormal. LVEF is 58%.RVSP is 30.9 mmHg and no significant valvular disease. serial troponins negative. he will be discharged home on a cardiac event recorder. no changes to his medication. discharge discussed with Dr Hardy Home Meds and New Rx's Prescriptions: Continued triamcinolone acetonide 0.1 % cream 1 applic Topical BID Qty: 454 RF: 3 sildenafil [Viagra] 50 mg tablet 50 mg PO DAILY PRN (Reason: sexual activity) Qty: 14 RF: 5 triamcinolone acetonide 0.5 % cream 1 applic TP .BID-QID Qty: 15 RF: 0 losartan 100 mg tablet 100 mg PO DAILY Qty: 90 RF: 3 pravastatin 40 mg tablet 40 mg PO DAILY Qty: 90 RF: 3 levothyroxine 50 mcg tablet 50 mcg PO DAILY Qty: 90 RF: 3 Discharge Instructions Instructions: Syncope (DC) Additional Instructions: drink 6-8 glasses of water daily to stay well hydrated change positions slowly, especially at night to avoid unsteady gait. Stand Alone Forms: Nursing Discharge Form Referrals: Alondra Pedersen NP [Primary Care Provider] - 10/24/20 10:00 am Activity:: Activity as Tolerated Equipment/Supplies:: No Equipment Needed Diet:: As Tolerated Discharge Orders Discharge Orders: Discharge Order (Routine); Ordered 10/10/20 Ordered By: Susan Charles Other Ambulatory Orders: Cardiac Event Recorder (Routine) Timeframe: 20201010 Facility: [facility] - Location: Respiratory Therapy Ordered By: Susan Charles Discharge Data Discharge Date/Time-TO BE ENTERED AT DEPARTURE: 10/10/20 13:27 DS: Summary Time Spent with Patient providing and/or coordinating discharge services: Less than 30 minutes Status at Discharge Functional status at discharge: independent ambulation Overall status at discharge: patient is back to baseline Mental Status: mental status grossly normal Speech and Movement: speech and movement normal Mood: congruent mood Affect: normal affect Exam Narrative Exam Narrative: Const: white male in NAD, pink warm dry and well perfused HEENT: NC/AT. Normal facial exam. Eyes: PERRL and EOMI. nonicteric Neck: Trachea midline. supple. Lungs: Respirations even and unlabored. Lungs are clear to auscultation. Cor: RRR no murmur. Good radial pulses, well perfused. GI: Soft. non tender, positive bowel sounds. Neuro: A+O x 3. Normal speech, mentation. Cranial nerves II - XII grossly intact. No gross motor or sensory deficit. Ext: moves all extremities, no edema No calf tenderness. Skin: Warm and dry without rash. Psych Mental Status: mental status grossly normal Speech and Movement: speech and movement normal Mood: congruent mood Affect: normal affect DS: Data Vitals/I&O Vitals and I&O: Vital Signs Temperature 36.6 C 10/10/20 11:26 Temperature Source Skin 10/10/20 11:26 Pulse 76 10/10/20 11:26 Pulse Rhythm Regular 10/10/20 08:25 Pulse 78 10/09/20 07:31 Respiratory Rate 18 06/02/21 11:26 Respiratory Effort Non-Labored 10/10/20 08:25 Respiratory Depth Normal 10/10/20 08:25 Respiratory Pattern Normal 10/10/20 08:25 Blood Pressure 147/89 H 10/10/20 11:26 Blood Pressure Mean 92 10/09/20 07:31 Blood Pressure Position Supine 10/09/20 05:21 Pulse Oximetry 97 10/10/20 07:27 Oxygen Delivery Method Room Air 10/10/20 11:26 Oxygen Flow Rate 0 10/10/20 11:26 Pain Level 2 10/10/20 11:26 Intake & Output 10/09/20 10/10/20 10/10/20 23:59 11:59 23:59 Intake Total 2450 / 3741 1250 / 1250 Output Total 1000 / 1000 Balance 2450 / 3441 250 / 250 Weight 90.9 kg Intake: IV 2000 / 3111 1000 / 1000 Oral 450 / 630 250 / 250 Output: Urine 1000 / 1000 Other: Urine Color Yellow Yellow Urine Appearance Clear Clear Urine Odor None Comment patient voiding in toilet, no measured. Voiding Methods Toilet Toilet Data Completed and Pending Labs on day of discharge: Labs from last 24 hours 10/10/20 10/10/20 10/09/20 06:16 06:16 14:00 WBC 5.60 RBC 3.71 L Hgb 12.4 L Hct 35.8 L MCV 96.5 H MCH 33.4 H MCHC 34.6 RDW 13.2 Plt Count 182 MPV 9.2 Immature Gran % 0.2 Neutrophils % 74.8 Lymphocytes % 13.6 Monocytes % 8.2 Eosinophils % 2.3 Basophils % 0.9 Nucleated RBC % 0 Absolute Neutrophils 4.19 Absolute Lymphocytes 0.76 L Absolute Monocytes 0.46 Absolute Eosinophils 0.13 Absolute Basophils 0.05 Sodium 137 135 L Potassium 4.2 4.6 Chloride 104 100 Carbon Dioxide 24.1 28.8 Anion Gap 8.9 6.2 BUN 9 13 Creatinine 1.0 D 1.5 H Estimated GFR/1.73 m2 >= 60.00 46.97 Glucose 111 H 120 H Calcium 8.0 L 8.7 Magnesium 1.7 L Troponin I Triglycerides 179 H Total Cholesterol 153 LDL Cholesterol, Calc 83 HDL Cholesterol 35 L 10/09/20 14:00 WBC RBC Hgb Hct MCV MCH MCHC RDW Plt Count MPV Immature Gran % Neutrophils % Lymphocytes % Monocytes % Eosinophils % Basophils % Nucleated RBC % Absolute Neutrophils Absolute Lymphocytes Absolute Monocytes Absolute Eosinophils Absolute Basophils Sodium Potassium Chloride Carbon Dioxide Anion Gap BUN Creatinine Estimated GFR/1.73 m2 Glucose Calcium Magnesium Troponin I < 0.05 Triglycerides Total Cholesterol LDL Cholesterol, Calc HDL Cholesterol [facility] Medical History (Updated 10/09/20 @ 13:49 by Susan Charles NP) Acute right-sided low back pain with right-sided sciatica (02/04/17) Sudden, 02/02/17, when getting out of car after 3/4 hr ride. No sudden twist or injury asociated. Hx lower back pain, sciatica, after lifting/pulling out a dock (?) form the water .. resolved. No imaging. 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 d/w pt, but no memory of injury/trauma aside from sciatica @ 2 years earlier from pulling a weight. No known mva or fall. Possible osteoporosis? > doubtful, not osteoporotic XR. 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 CT neck with contrast ordered by ENT Tubular adenoma 2014 colo tubular adenoma, repeated 01/07/19 Dr Daisy Bey - no biopsies, normal, repeat five years due to personal history precancerous polyps. Xerosis of skin (06/14/15) Surgical History Colonoscopy w/ BX (02/01/15) History of biopsy (09/14/18) laryngeal mass-Dr Quintero [facility] [place] Family History Mother Essential hypertension Colon cancer Father Essential hypertension Stroke Brother No problems noted. Social History Smoking/Tobacco Use Status: Former Tobacco Use Quit Date: 10/09/17 Tobacco: How many years used: 40 Smoking risk assessment performed?: Yes Alcohol Intake: current Alcohol Intake frequency: 3 or more drinks per day Alcohol type: beer Drug use: Never Substance use type: does not use Details: 2-3 12 oz bottles of beer a night. 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
--- NOTE | 2020-10-10 12:57 | PT.INIE ---
Date of service: 10/10/20 Time of Service: 12:57 PT Notes Visit Reasons: Two Syncopal Episodes Physical Therapy Inpatient Initial Evaluation Date: 10/10/2020 Referring Doctor: Susan Charles NP PT Orders: PT CONSULT: Eval/treat Precautions: Fall. Standard. Activity as tolerated. Patient Profile/Admitting Diagnosis: [place] is a 64-year-old male who presented to the ED on 10/09/2020 due to 2 episodes of fainting at home. Patient is diagnosed with syncope, hypothyroidism, EtOH use disorder, hyperlipidemia, and hypertension. PMHX: Medical History (Updated 10/09/20 @ 13:49 by Susan Charles NP) Acute right-sided low back pain with right-sided sciatica (02/04/17) Sudden, 02/02/17, when getting out of car after 3/4 hr ride. No sudden twist or injury asociated. Hx lower back pain, sciatica, after lifting/pulling out a dock (?) form the water .. resolved. No imaging. 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 d/w pt, but no memory of injury/trauma aside from sciatica @ 2 years earlier from pulling a weight. No known mva or fall. Possible osteoporosis? > doubtful, not osteoporotic XR. 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 CT neck with contrast ordered by ENT Tubular adenoma 2014 colo tubular adenoma, repeated 01/07/19 Dr Daisy Bey - no biopsies, normal, repeat five years due to personal history precancerous polyps. Xerosis of skin (06/14/15) Surgical History to dog manage him for coagulable [place] Colonoscopy w/ BX (02/01/15) History of biopsy (09/14/18) laryngeal mass-Dr Quintero [facility] [place] Social History/Home Situation: Lives with in a private home. Independent with all aspects of ADLs prior to admission. 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 Equipment Owned/DME: None Subjective: Reports feeling better than he did yesterday. Is a very much ready to go home whenever the hospitalist gives him the go signal. Objective: General Observation: Standing in room, close to the foot of the bed with no AD. Mental Status: Alert and oriented as to person, place, time, and purpose. Able to pay attention, focus, and respond appropriately. Pain: 0/10 ROM: Right Upper Extremity: Shoulder Flexion WFL. Shoulder abduction WFL. Shoulder ER/IR WFL. Elbow flexion WFL. Forearm pronation/supination WFL. Wrist flexion WFL. Opening and closing of hand WFL. Left Upper Extremity: Shoulder Flexion WFL. Shoulder abduction WFL. Shoulder ER/IR WFL. Elbow flexion WFL. Forearm pronation/supination WFL. Wrist flexion WFL. Opening and closing of hand WFL. Right Lower Extremity: Hip flexion WFL. Hip abduction WFL. Hip ER/IR WFL. Knee flexion WFL. Knee extension. Ankle dorsiflexion/eversion WFL. Ankle plantarflexion/inversion WFL. Left Lower Extremity: Hip flexion WFL. Hip abduction WFL. Hip ER/IR WFL. Knee flexion WFL. Knee extension. Ankle dorsiflexion WFL. Ankle plantarflexion WFL. Strength: Right Upper Extremity: Shoulder flexors 5/5. Shoulder abductors 5/5. Shoulder ER 5/5. Shoulder IR 5/5. Forearm pronators 5/5. Forearm supinators 5/5. Elbow flexors 5/5. Elbow extensors 5/5. Chargeback Analyst strong. Left Upper Extremity: Shoulder flexors 5/5. Shoulder abductors 5/5. Shoulder ER 5/5/ Shoulder IR 5/5. Forearm pronators 5/5. Forearm supinators 5/5. Elbow flexors 5/5. Elbow extensors 5/5. Chargeback Analyst strong. Right Lower Extremity: Hip flexors 5/5. Hip abductors 5/5. Hip external rotators 5/5. Hip internal rotators 5/5. Knee flexors 5/5. Knee extensors 5/5. Ankle dorsiflexors/evertors 5/5. Ankle plantarflexors/invertors 5/5. Left Lower Extremity: Hip flexors 5/5. Hip abductors 5/5. Hip external rotators 5/5. HIp internal rotators 5/5. Knee flexors 5/5. Knee extensors 5/5. Ankle dorsiflexors/evertors 5/5. Ankle plantarflexors/invertors 5/5. Bed Mobility/Transfers: Rolling independent Supine to sit independent Sit to supine independent Sit to stand independent Stand to sit independent Bed to chair independent Chair to bed independent Gait: [place] was guided through level symptoms ambulation of 100 feet without an assistive device. No LOB. No path deviation. Denies headache, chest pain, and dizziness throughout. Gait pattern unremarkable. Balance: Static Sitting: Normal Dynamic Sitting: Normal Static Standing: Normal Dynamic Standing: Normal Special Tests: Mobility Limitations Standardized Measure [facility] 6 clicks Basic Mobility Inpatient Short Form: Raw Score: 24 CMS Score: 0% deficit Informed Consent/Education: Patient instructed in purpose of PT consult. Assessment: Patient demonstrates functional deficits at this time and may be discharged to home once cleared by hospitalist without the need for an assistive ambulatory device. No skilled services recommended at this time. Patient is assessed as a [id number] low complexity based on the following: History: 64 male 1-year-old with past medical history as indicated above Examination: Demonstrable impairment in strength, balance, and mobility level with underlying impairments and functional limitations as exhibited above as well as deficit score of % utilizing the [facility] Mobility Inpatient Short Form Presentation: Stable Decision Makin low complexity Goals: N/A PT evaluation 1 treatment session only. Plan of Care/Treatment Plan: N/A PT evaluation 1 treatment session only. DISCHARGE RECOMMENDATIONS: Home when medically cleared by hospitalist. No equipment needs at this time. 716 1 x 18 minutes TREATMENT CODE/TIME: 51576 x 18 minutes beginning at 12:57 PM. Thank you for the opportunity to participate in the care of this patient. Umm Gibson PT, DPT, CLT [facility] [place], [place]
[2020-10-10 13:04] VITALS: PULSE 98
--- NOTE | 2020-10-10 18:00 | PDOC.CMDIS ---
- If Service Date Differs Date of service: 10/10/20 Time of Service: 18:00 LACE Index Scoring Tool - Questions: Length of Stay (in days): 1 Acuity (Admit via E.D.?): Yes Comorbidities: Any Tumor E.D. Visits: 1 - Answers: Total Score: 7 Risk of Readmission: Low Risk Care Management Discharge Reason for Hospitalization: Two syncopal episodes Discharge Plan: [place] will return home with no additional services at this time. He will follow up with his PCP and discharge plan of care. His will drive him home via private vehicle. He is happy to be going home. Patient/Family Education Needs: Review discharge instructions regarding activity levels and medications, discussion of self care needs including ask me three.
--- NOTE | 2020-11-05 09:32 | CER_ITS ---
Date of service: 11/05/20 Time of Service: 09:32 Cardiac Event Recorder Referring Provider:: Endy Indications:: Syncope Cardiac Event Note: There is a 30-day monitor order for indication of syncope. ?Patient was in normal sinus rhythm for the majority of the recording with an average heart rate of 86 bpm. ?There were 0 critical and 0 serious events recorded. ?There were 2 patient triggered events neither which were associated with an a bnormal rhythm. ?There were no episodes of atrial fibrillation, no pauses greater than 3 seconds and no evidence of high degree heart block.
== END 2020-10-10 13:27 | disposition home or self-care (01) ==
LOC: ER 07:55 → MS 08:05
PROVIDERS: Admitting Provider Internal Medicine; Emergency Provider Emergency Medicine; PCP Nurse Practitioner; Visit Provider Internal Medicine
DX: R55 Syncope and collapse (principal); F10.10 Alcohol abuse, uncomplicated; E03.9 Hypothyroidism, unspecified; E78.5 Hyperlipidemia, unspecified; I10 Essential (primary) hypertension; M10.9 Gout, unspecified; Z87.891 Personal history of nicotine dependence
CPT/HCPCS: 36415; 80048; 80053; 80061; 82550; 87635; 93005; 93270; 93306; 96361; 96365; 96366; 97161; 99285; 70450; 72125; 81003; 83735; 84443; 84484; 85025; 85379; 93010; 99217; 99220

== ENCOUNTER 2020-12-08 16:29 | Outpatient (REF) | payer BC, SELFPAY ==
[2020-12-10 11:34] LABS: COVID-19 RT-PCR UVMMC Result Negative (Negative)
== END 2020-12-08 16:30 | disposition home or self-care (01) ==
LOC: LBN 16:29
PROVIDERS: PCP Nurse Practitioner; Visit Provider Physician Assistant
DX: Z20.822 Contact with and (suspected) exposure to COVID-19 (principal)
CPT/HCPCS: U0003

== ENCOUNTER 2021-08-26 02:44 | Outpatient (CLI) | payer BC, SELFPAY ==
[2021-08-26 07:29] LABS: HCT 41.2 % (40.0-50.0); HGB 14.2 g/dL (13.5-17.5); MCH 32.6 pg (27.0-33.0); MCHC 34.5 % (32.0-36.0); MCV 94.5 fL (80-95); MPV 9.4 fL (8.0-11.0); Platelet Count 238 10^3/uL (130-400); RBC 4.36 10^6/uL (4.36-5.78); RDW 13.6 % (11.8-14.1); RDW-SD 47.6 fL; WBC 5.97 10^3/uL (4.4-10.8)
[2021-08-26 09:00] LABS: ALT 37 U/L (16-63); AST 16 U/L (15-37); Albumin 4.3 g/dL (3.4-5.0); Alkaline Phosphatase 67 U/L (46-116); Anion Gap 9.3 mmol/L (3-11); BUN 9 mg/dL (7-18); Bilirubin, Total 0.9 mg/dL (0.2-1.0); CO2 26.7 mmol/L (21.0-32.0); Calcium 9.4 mg/dL (8.5-10.1); Calculated LDL 98 mg/dL (<100); Chloride 98 mmol/L (98-107); Cholesterol 172 mg/dL (<200); Glucose 114 mg/dL (74-106); HDL Cholesterol 48 mg/dL (40-60); Potassium 4.7 mmol/L (3.5-5.1); Sodium 134 mmol/L (136-145); TSH (W/Ref FT4) 3.45 uIU/mL (0.36-3.74); Total Protein 7.2 g/dL (6.4-8.2); Triglyceride 132 mg/dL (<150)
== END 2021-08-26 02:45 | disposition home or self-care (01) ==
LOC: LBO 02:44
PROVIDERS: PCP Nurse Practitioner; Visit Provider Nurse Practitioner
DX: E03.9 Hypothyroidism, unspecified (principal); I10 Essential (primary) hypertension; Z12.5 Encounter for screening for malignant neoplasm of prostate; Z80.42 Family history of malignant neoplasm of prostate
CPT/HCPCS: 36415; 80053; 80061; 84153; 85027; 84443

== ENCOUNTER 2021-09-03 09:26 | Outpatient (CLI) | payer BC, SELFPAY ==
--- NOTE | 2021-09-03 08:15 | DI.RAD_ITS ---
Exam(s) XR SHOULDER RT COMPLETE 2+V EXAM: XR SHOULDER RT COMPLETE 2+V CLINICAL HISTORY: RIGHT SHOULDER PAIN. TECHNIQUE: 2D digital imaging was performed of the right shoulder. Three images were obtained. AP, Y-view and axillary views were obtained. COMPARISON: No exams were available for comparison FINDINGS: BONES: No acute fracture is present. No bony destructive lesion is seen. JOINTS: No dislocation present. There are mild degenerative changes seen at both the acromioclavicula r and glenohumeral joints. SOFT TISSUE: Normal. IMPRESSION: Mild degenerative changes in the shoulder. DATA REPOSITORY: RADIATION DOSE DELIVERED:
== END 2021-09-03 09:27 | disposition home or self-care (01) ==
LOC: DIORS 09:26
PROVIDERS: PCP Nurse Practitioner; Referring Provider Nurse Practitioner; Visit Provider Physician Assistant
DX: M25.511 Pain in right shoulder (principal); M19.011 Primary osteoarthritis, right shoulder
CPT/HCPCS: 73030

== ENCOUNTER 2022-02-14 01:38 | Outpatient (CLI) | payer MEDICARE, SELFPAY ==
[2022-02-17 11:10] LABS: PSA, Diagnostic 5.5 ng/mL (<=4.5)
== END 2022-02-14 01:39 | disposition home or self-care (01) ==
PROVIDERS: PCP Nurse Practitioner; Visit Provider Urology
DX: R97.20 Elevated prostate specific antigen [PSA] (principal)
CPT/HCPCS: 36415; 84153

== ENCOUNTER → 2022-03-07 14:18 | Outpatient (BNVA) | payer MEDICARE, SELFPAY | PROVIDERS: PCP Nurse Practitioner; Referring Provider Nurse Practitioner; Visit Provider Urology | DX: N40.0 Benign prostatic hyperplasia without lower urinary tract symptoms (principal); R35.1 Nocturia; R97.20 Elevated prostate specific antigen [PSA] | CPT/HCPCS: 99213 ==

== ENCOUNTER 2022-04-15 02:52 | Outpatient (CLI) | payer MEDICARE, SELFPAY ==
--- NOTE | 2022-04-15 07:30 | DI.CTLCSR_ITS ---
Exam(s) CT CHEST LUNG CANCER SCREEN EXAM: CT CHEST LUNG CANCER SCREEN CLINICAL HISTORY: Screening for lung cancer,former smoker, z87.891 TECHNIQUE: Imaging Protocol: Axial computed tomography images with coronal and sagittal reformatted images were created and reviewed COMPARISON: CT CT CHEST WO from 03/29/2021 FINDINGS: Tracheobronchial tree: Patent where visualized. Pulmonary parenchyma: No consolidation or dominant measurable mass. No architectural distortion. Lung Nodules: There is a 3 mm nodule in the right upper lobe. Mediastinum and Torri: No dominant adenopathy or fluid collection. The esophagus is unremarkable. Thyroid gland: Unremarkable. Lymph nodes: Unremarkable. Pleura: No effusion or pneumothorax. Heart: The heart is not dilated. Coronary artery calcifications are present. No pericardial effusion . Aorta: Thoracic aorta non-dilated.There is mild atherosclerosis. Upper abdomen: Unremarkable. Soft Tissues: Unremarkable. Bones: Within normal limits. IMPRESSION: 3 mm right upper lobe pulmonary nodule. Lung RADS Cat 2 - Benign Appearance / Behavior: Nodules with a very low likelihood of becoming a clin ically active cancer due to size or lack of growth Lung-RADS 1.0 CATEGORIES: Category 0 - Prior chest CT exam(s) being located for comparison. Category 1 - Annual screening in 12 months. No nodules or definitely benign nodules. Category 2 - Annual screening in 12 months. Benign appearance. Nodules with low likelihood of becomin g active cancer. Category 3 - 6-month follow-up. Probably benign. Short-term follow-up suggested. Nodules with low lik elihood of becoming active cancer. Category 4A - 3-month follow-up and CT/PET if >8 mm in size. Suspicious finding. Findings which requi re additional testing. Category 4B - Findings which require additional testing and tissue sampling. Suspicious finding. Category 4X - Category 3 or 4 nodules with additional features or imaging findings that increases the suspicion of malignancy. Modifier S- Potentially clinically significant finding. (Non lung cancer) RADIATION DOSE DELIVERED: 78.68mGy.cm Total DLP 1.84mGy!Error CTDIvol 78.68mGy.cmTotal DLP 1.84mGy!Error CTDIvol DATA REPOSITORY: All CT scans at this facility are submitted to the National Radiology Data Registry (NRDR) Dose Index Registry (DIR) with the [employer] (ACR). RADIATION OPTIMIZATION: All CT scans at this facility use at least one of these dose optimization te chniques: automated exposure control; mA and/or kV adjustment per patient size (includes targeted exa ms where dose is matched to clinical indication); or iterative reconstruction.
== END 2022-04-15 03:12 ==
PROVIDERS: PCP Nurse Practitioner; Visit Provider Nurse Practitioner
DX: Z87.891 Personal history of nicotine dependence (principal); Z12.2 Encounter for screening for malignant neoplasm of respiratory organs; R91.1 Solitary pulmonary nodule
CPT/HCPCS: 71271

== ENCOUNTER 2022-04-28 13:55 | Outpatient (CLI) | payer MEDICARE, SELFPAY ==
[2022-04-28 14:24] LABS: HCT 42.2 % (40.0-50.0); HGB 14.5 g/dL (13.5-17.5); MCH 32.5 pg (27.0-33.0); MCHC 34.4 % (32.0-36.0); MCV 95 fL (80-95); MPV 9.5 fL (8.0-11.0); Platelet Count 285 10^3/uL (130-400); RBC 4.46 10^6/uL (4.36-5.78); RDW 12.6 % (11.8-14.1); WBC 6.77 10^3/uL (4.4-10.8)
[2022-04-28 14:47] LABS: ALT 30 U/L (16-63); AST 17 U/L (15-37); Albumin 4.4 g/dL (3.4-5.0); Alkaline Phosphatase 75 U/L (46-116); Anion Gap 8.6 mmol/L (3-11); BUN 10 mg/dL (7-18); Bilirubin, Total 0.7 mg/dL (0.2-1.0); CO2 28.4 mmol/L (21.0-32.0); Calcium 9.8 mg/dL (8.5-10.1); Calculated LDL 105 mg/dL (<100); Chloride 97 mmol/L (98-107); Cholesterol 194 mg/dL (<200); Estimated GFR 82.49 (mL/min/1.73m2); Glucose 98 mg/dL (74-106); HDL Cholesterol 58 mg/dL (40-60); Potassium 4.4 mmol/L (3.5-5.1); Sodium 134 mmol/L (136-145); TSH (W/Ref FT4) 2.47 uIU/mL (0.36-3.74); Total Protein 7.8 g/dL (6.4-8.2); Triglyceride 157 mg/dL (<150)
== END 2022-04-28 13:56 | disposition home or self-care (01) ==
LOC: LBO 14:04
PROVIDERS: PCP Nurse Practitioner; Visit Provider Internal Medicine Hematology & Oncology
DX: E03.9 Hypothyroidism, unspecified (principal); E78.5 Hyperlipidemia, unspecified; I10 Essential (primary) hypertension; N52.9 Male erectile dysfunction, unspecified
CPT/HCPCS: 36415; 80053; 80061; 85027; 84443

== ENCOUNTER 2022-08-18 01:26 | Outpatient (CLI) | payer MEDICARE, SELFPAY ==
[2022-08-18 07:43] LABS: TSH 4.08 uIU/mL (0.36-3.74)
[2022-08-18 18:08] LABS: PSA, Diagnostic 4.9 ng/mL (<=4.5)
== END 2022-08-18 01:27 | disposition home or self-care (01) ==
LOC: LBO 01:26
PROVIDERS: Urology; PCP Nurse Practitioner; Referring Provider Nurse Practitioner; Visit Provider Nurse Practitioner
DX: E03.9 Hypothyroidism, unspecified (principal)
CPT/HCPCS: 36415; 84153; 84443

== ENCOUNTER → 2022-09-23 14:09 | Outpatient (BNVA) | payer MEDICARE, SELFPAY | PROVIDERS: PCP Nurse Practitioner; Visit Provider Urology | DX: R97.20 Elevated prostate specific antigen [PSA] (principal) | CPT/HCPCS: 99213 ==

== ENCOUNTER 2023-02-17 02:47 | Outpatient (CLI) | payer MEDICARE, SELFPAY ==
[2023-02-17 08:08] LABS: ALT 43 U/L (16-63); AST 19 U/L (15-37); Albumin 3.9 g/dL (3.4-5.0); Alkaline Phosphatase 67 U/L (46-116); Anion Gap 9.1 mmol/L (3-11); BUN 12 mg/dL (7-18); Bilirubin, Total 0.7 mg/dL (0.2-1.0); CO2 27.9 mmol/L (21.0-32.0); CREATININE 1.1 mg/dL (0.70-1.30); Calcium 9.2 mg/dL (8.5-10.1); Calculated LDL 101 mg/dL (<100); Chloride 95 mmol/L (98-107); Cholesterol 190 mg/dL (<200); Estimated GFR 73.12 (mL/min/1.73m2); Glucose 126 mg/dL (74-106); HDL Cholesterol 47 mg/dL (40-60); Sodium 132 mmol/L (136-145); TSH (W/Ref FT4) 7.76 uIU/mL (0.36-3.74); Total Protein 7.2 g/dL (6.4-8.2); Triglyceride 212 mg/dL (<150)
[2023-02-17 08:31] LABS: FREE T4 0.92 ng/dL (0.76-1.46)
== END 2023-02-17 02:48 | disposition home or self-care (01) ==
LOC: LBO 02:47
PROVIDERS: PCP Nurse Practitioner; Visit Provider Nurse Practitioner
DX: E03.9 Hypothyroidism, unspecified (principal); E78.5 Hyperlipidemia, unspecified; I10 Essential (primary) hypertension
CPT/HCPCS: 36415; 80053; 80061; 84439; 84443

== ENCOUNTER 2023-03-24 01:55 | Outpatient (CLI) | payer MEDICARE, SELFPAY ==
[2023-03-24 18:30] LABS: PSA, Diagnostic 5.2 ng/mL (<=4.5)
== END 2023-03-24 01:56 | disposition home or self-care (01) ==
LOC: LBO 01:55
PROVIDERS: PCP Nurse Practitioner; Visit Provider Urology
DX: R97.20 Elevated prostate specific antigen [PSA] (principal)
CPT/HCPCS: 36415; 84153

== ENCOUNTER → 2023-03-31 14:10 | Outpatient (BNVA) | payer MEDICARE, SELFPAY | PROVIDERS: PCP Nurse Practitioner; Visit Provider Urology | DX: R97.20 Elevated prostate specific antigen [PSA] (principal) | CPT/HCPCS: 99213 ==

== ENCOUNTER → 2023-04-17 00:21 | Outpatient (CLI) | payer MEDICARE, SELFPAY ==
--- NOTE | 2023-04-17 08:25 | DI.CTLCSR_ITS ---
Exam(s) CT CHEST LUNG CANCER SCREEN EXAM: CT CHEST LUNG CANCER SCREEN CLINICAL HISTORY: SCREENING FOR LUNG CA,FORMER SMOKER, Z87.891,HIGH RISK FOR LUNG CANCER. TECHNIQUE: Imaging Protocol: Low Dose Technique CONTRAST MATERIAL: None COMPARISON: CT CT CHEST LUNG CANCER SCREEN from 04/15/2022 FINDINGS: CHEST: LUNGS: There is a 2-3 millimeter unchanged nodule in the lateral aspect of the right upper lobe. No new nodules nor new infiltrates and no pleural effusions.. There are no confluent infiltrates. No n ew findings in the trachea and mainstem bronchi. MEDIASTINUM: There is no obvious hilar nor mediastinal adenopathy. CARDIAC: Heart size is normal. There is no pericardial effusion.Caliber of the thoracic aorta is wit hin normal limits. OTHER: OSSEOUS: No significant osseous lesions.No new fractures evident.. IMPRESSION: 1. Stable 2-3 millimeter right upper lobe nodule. No new nodules. No infiltrates nor pleural effusi ons. 2. No intrathoracic adenopathy. 3. Lung RADS Cat 2 - Benign Appearance / Behavior: Nodules with a very low likelihood of becoming a c linically active cancer due to size or lack of growth Lung-RADS 1.0 CATEGORIES: Category 0 - Prior chest CT exam(s) being located for comparison. Category 1 - Annual screening in 12 months. No nodules or definitely benign nodules. Category 2 - Annual screening in 12 months. Benign appearance. Nodules with low likelihood of becomin g active cancer. Category 3 - 6-month follow-up. Probably benign. Short-term follow-up suggested. Nodules with low lik elihood of becoming active cancer. Category 4A - 3-month follow-up and CT/PET if >8 mm in size. Suspicious finding. Findings which requi re additional testing. Category 4B - Findings which require additional testing and tissue sampling. Category 4X - Category 3 or 4 nodules with additional features or imaging findings that increases the suspicion of malignancy. Modifier S- Potentially clinically significant findings (non lung cancer) RADIATION DOSE DELIVERED: Total DLP DATA REPOSITORY: All CT scans at this facility are submitted to the National Radiology Data Registry (NRDR) Dose Index Registry (DIR) with the [employer] (ACR). RADIATION OPTIMIZATION: All CT scans at this facility use at least one of these dose optimization te chniques: automated exposure control; mA and/or kV adjustment per patient size (includes targeted exa ms where dose is matched to clinical indication); or iterative reconstruction.
== END ==
PROVIDERS: PCP Nurse Practitioner; Visit Provider Internal Medicine Hematology & Oncology
DX: Z87.891 Personal history of nicotine dependence (principal); Z12.2 Encounter for screening for malignant neoplasm of respiratory organs; R91.1 Solitary pulmonary nodule
CPT/HCPCS: 71271

== ENCOUNTER 2023-09-25 01:51 | Outpatient (CLI) | payer MEDICARE, SELFPAY ==
[2023-09-25 09:28] LABS: Abs Immature Grans 0.01 10^3/uL (0.0-0.06); Absolute Basophil Count 0.08 10^3/uL (0.0-0.2); Absolute Eosinophil Count 0.14 10^3/uL (0.0-0.7); Absolute Lymphocyte Count 0.78 10^3/uL (1.2-3.4); Absolute Monocyte Count 0.45 10^3/uL (0.1-0.8); Basophils % 1.6 %; Eosinophils % 2.7 %; HCT 42.9 % (40.0-50.0); HGB 15.3 g/dL (13.5-17.5); Immature Grans % 0.2 %; Lymphocytes % 15.1 %; MCH 33.6 pg (27.0-33.0); MCHC 35.7 % (32.0-36.0); MCV 94 fL (80-95); MPV 9.7 fL (8.0-11.0); Monocytes % 8.7 %; Neutrophils % 71.7 %; Platelet Count 218 10^3/uL (130-400); RBC 4.55 10^6/uL (4.36-5.78); RDW 13.2 % (11.8-14.1); RDW-SD 45.9 fL; WBC 5.16 10^3/uL (4.4-10.8)
[2023-09-25 10:20] LABS: ALT 46 U/L (16-63); AST 15 U/L (15-37); Albumin 4.2 g/dL (3.4-5.0); Alkaline Phosphatase 59 U/L (46-116); Anion Gap 9.6 mmol/L (3-11); BUN 11 mg/dL (7-18); Bilirubin, Total 0.9 mg/dL (0.2-1.0); CO2 29.4 mmol/L (21.0-32.0); Calcium 9.7 mg/dL (8.5-10.1); Calculated LDL 90 mg/dL (<100); Chloride 98 mmol/L (98-107); Cholesterol 177 mg/dL (<200); Estimated GFR 81.98 (mL/min/1.73m2); Glucose 120 mg/dL (74-106); HDL Cholesterol 49 mg/dL (40-60); Potassium 4.1 mmol/L (3.5-5.1); Sodium 137 mmol/L (136-145); TSH (W/Ref FT4) 2.65 uIU/mL (0.36-3.74); Total Protein 7.5 g/dL (6.4-8.2); Triglyceride 192 mg/dL (<150)
[2023-09-25 19:03] LABS: PSA, Diagnostic 6.4 ng/mL (<=4.5)
== END 2023-09-25 01:52 | disposition home or self-care (01) ==
LOC: LBO 01:51
PROVIDERS: PCP Nurse Practitioner; Visit Provider Urology
DX: R97.20 Elevated prostate specific antigen [PSA] (principal); E78.5 Hyperlipidemia, unspecified; E03.9 Hypothyroidism, unspecified; I10 Essential (primary) hypertension
CPT/HCPCS: 36415; 80053; 80061; 84153; 84443; 85025

== ENCOUNTER → 2023-10-30 13:45 | Outpatient (BNVA) | payer MEDICARE, SELFPAY | PROVIDERS: PCP Nurse Practitioner; Visit Provider Urology | DX: R35.1 Nocturia (principal); R97.20 Elevated prostate specific antigen [PSA] | CPT/HCPCS: 99213 ==

== ENCOUNTER → 2023-12-10 10:28 | Outpatient (BNVA) | payer MEDICARE, SELFPAY | PROVIDERS: PCP Nurse Practitioner; Referring Provider Nurse Practitioner; Visit Provider Physical Therapy Assistant | DX: Z12.11 Encounter for screening for malignant neoplasm of colon (principal); Z80.0 Family history of malignant neoplasm of digestive organs ==

== ENCOUNTER 2023-12-18 08:56 | Day surgery (SDC) | payer MEDICARE, SELFPAY ==
--- NOTE | 2023-12-17 20:07 | PDOC.DSDIS_ITS ---
Date of service: 12/18/23 Time of Service: 13:03 Discharge Plan Disposition Patient Disposition: Home Condition: Good Discharge Details Reason For Visit: colon scope and hemorrhoid banding Attending Provider: Roxie Smart Primary Care Provider: Alondra Pedersen Home Meds and New Rx's Prescriptions: Continued triamcinolone acetonide 0.1 % cream 1 applic Topical BID Qty: 454 3RF Rx Instructions: apply to dry skin of legs clotrimazole 1 % cream 1 applic topical BID Qty: 45 5RF Rx Instructions: Apply to feet twice daily for 6 weeks. cholecalciferol (vitamin D3) 25 mcg (1,000 unit) tablet 25 mcg PO DAILY polyethylene glycol 3350 17 gram/dose powder 17 g PO ONCE Qty: 238 0RF Rx Instructions: Take per colonoscopy instructions provided by ordering providers office sildenafil [Viagra] 50 mg tablet 50 mg PO DAILY PRN (Reason: sexual activity) Qty: 14 5RF losartan 100 mg tablet See Rx Instructions .ROUTE .COMPLEX Qty: 90 3RF Dose Instruction: TAKE ONE TABLET BY MOUTH EVERY DAY Rx Instructions: TAKE ONE TABLET BY MOUTH EVERY DAY levothyroxine 75 mcg tablet 75 mcg PO DAILY Qty: 90 3RF pravastatin 40 mg tablet See Rx Instructions .ROUTE .COMPLEX Qty: 90 3RF Dose Instruction: TAKE ONE TABLET BY MOUTH EVERY DAY Rx Instructions: TAKE ONE TABLET BY MOUTH EVERY DAY trazodone 50 mg tablet See Rx Instructions .ROUTE .COMPLEX Qty: 90 3RF Dose Instruction: TAKE 1 TABLET BY MOUTH AT BEDTIME NEEDED FOR SLEEP Rx Instructions: TAKE 1 TABLET BY MOUTH AT BEDTIME NEEDED FOR SLEEP Discontinued bisacodyl [Dulcolax (bisacodyl)] 5 mg tablet,delayed release (DR/EC) 5 mg PO ONCE Qty: 4 0RF Rx Instructions: Take per colonoscopy instructions provided by ordering providers office Discharge Instructions Additional Instructions: DSU Colonoscopy Post- Op Instructions Instructions for Everyone who is given Anesthesia: For your safety, please do the following for the next twenty-four (24) hours: *Do Not operate a motor vehicle (car, truck, motorcycle, etc.) *Do Not drink alcoholic beverages or use any recreational drugs for the first 24 hours or while taking pain medications. The medications in your body may have a reaction that can be dangerous. *Do Not make any important decisions or sign any important papers. Findings: Polyp and diverticula -Make sure you are moving your bowels on a regular basis and not straining. If you find you have Problems with constipation or straining then we recommend you start a fiber supplement such as Metamucil. Follow up: My office will send you a letter in 2 to 3 weeks time with the results of pathology and when we want you to repeat the colonoscopy. 1. No lifting over 20 pounds or strenuous activity for the first 24 hours after your procedure. After 24 hours there are no restrictions on your activity but you may feel fatigued for a few days. 2. After you arrive home you may have a light meal and return to your normal diet as you can tolerate it without feeling sick to your stomach. 3. You may have a bloated, gaseous feeling in your belly (abdomen) after a colonoscopy. Passing gas and belching will help. Walking or lying down on your left side with your knees flexed may relieve the discomfort. Call the office at [phone] (Office) or [phone] (Hospital) right away if you notice any of the following: a.Vomiting of blood or ?coffee ground stools?. b.Rectal bleeding 1Tbsp, blood clots or continuous bleeding. c.Severe belly (abdominal) pain. d.A hard distended belly (abdomen) and an inability to pass gas. 4. Please don?t expect to have a normal BM (bowel movement) for 2-3 days after your procedure. 5. If there are questions regarding the findings of your procedure, please contact your doctor 6. If you are unable to contact your doctor with a problem, contact the hospital at [phone]. 7. Continue all your regular medications unless directed otherwise. Home Care Instructions after Rectal Surgery Pain control:? Ibuprofen 600mg 6hrs (take w/ food. Do not take on an empty stomach) and Tylenol 1000mg by mouth (ibuprofen 400-600mg) every 8 hours.? Do not take if you have ulcers or sensitivity to aspirin.? Do not take Tylenol if you have hepatitis or liver failure. Alternate the Tylenol and ibuprofen.? Take pain meds continuously for the first 72hrs.? After 72hrs, you can take as needed if you are having pain.? How to prevent constipation: The first bowel movement after surgery will be painful. Do not let yourself get constipated. Stay on a stool softener for the first two weeks after surgery. ?It is recommended that you use a fiber supplement (Metamucil, Citrucel) daily (1 tablespoon in 8 oz of water). If you do not have a bowel movement daily, use Milk of Magnesia or Miralax.You may have bleeding or drainage after rectal surgery; especially when you move your bowels. Use a sanitary napkin to collect the discharge. If you are passing large clots or having to change the pad more than every 4 hours, call the clinic or go to the ER. You may experience spasms in the rectal muscles. This is normal after surgery and last for about a weeks. They can become more intense with bowel movements. The best remedy is to soak in a bathtub of plain warm water- no Epsom salts, essential oil or soap.? It takes about 10 minutes further the spasm to stop.? You may want to do this after BM as well. It is ok to shower. Avoid soap on the surgical area. Use a pillow to sit on. Follow a mild bland diet. Avoid alcohol, spicy food, citrus, and tomatoes. Avoid strenuous activity (running, jogging, and power walking, swimming, weight lifting) for two weeks. No lifting over 20 pounds for 2 weeks. I understand the above instructions and have no questions. Signature of Patient or Adult Escort Name of Responsible Adult Escort Signature of Nurse Date/Time Stand Alone Forms: Anesthesia Discharge Inst. 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 The patient has been able to pass gas.? They are not having abdominal pain.? They have been able to tolerate liquids and a snack.? They do not have any nausea or vomiting.? They are not having any chest pain or shortness of breath.??? They are not having any rectal bleeding. Their vital signs have been stable-see nursing notes. We discussed findings during their colonoscopy, and any biopsies that were done/polyps that were removed. The patient will be sent a letter with any biopsy results, and when to repeat the colonoscopy.-see discharge instructions. Patient was given explicit instructions to follow-up regarding colonoscopy-refer to discharge instructions.? We reviewed resumption of medications. Patient verbalized understanding and discharged in stable and satisfactory condition- See nursing notes.
--- NOTE | 2023-12-17 20:42 | W.COLOREPORT ---
Date of service: 12/18/23 Time of Service: 11:16 Colonoscopy Report Date of procedure: 12/18/23 Pre-op diagnosis general: Family HX of CRC Post-op diagnosis procedure note: other (pandiverticula/polyps/I hemorrhoids/prolapse ) Surgeon: Roxie Smart Anesthesia Type: General:No Airway Estimated blood loss (mL): 2 Pathology: other Complications: None Disposition: same day Prep: Miralax/Dulcolax Retraction Time: 17 Procedure Description: After informed consent was obtained, explaining risks of the procedure, including but not limits to: bleeding, infections, complications of anesthesia, perforations (which may require antibiotics and /or surgery and stay in the hospital), and abdominal pain/cramping. The patient was taken to the procedure room and placed in a left decubitous position. Monitors were applied and a time out was done. The patients name, date of , procedure, allergies to medications and metal in their body was reviewed. The patient was then sedated. Once sedated and comfortable a rectal exam was done. External exam was normal. Internal exam revealed a normal sphincter tone and no palpable masses. The prostate no palpable masses The previously lubricated Olympus scope was then introduced (see RN notes for scope number) and retrofelexed. Grade II internal hemorrhoids & mild prolapse were identified. The scope was then advanced to the cecum without difficulty. The TI and appendiceal orifice were identified. The scope was then slowly retracted over 17 minutes back into the rectum. Polyps: A flat, .75cm polyp was found at 80cm. This was removed with a cold biting forceps. All of the specimen was retrieved. This will be sent to pathology. There is no bleeding noted from the polypectomy site. . Diverticula: pt had a moderate amount of large mouthed diverticula throughout the entire colon. There were no signs of active bleeding or infection. The mucosa is pink and healthy w/ a normal vascular pattern. The scope was removed, and the patient was woken up and taken back to Same day surgery in stable condition. The patient tolerated the procedure well and there were no immediate complications. Follow up: The patient should follow up in 3-7 years, path pending unless they develop changes in bowel habits or other new gastrointestinal complaints. [place] Bowel Prep [place] Bowel Prep Right Colon: 3 Left Colon: 3 Transverse Colon: 2 Total Score: 8
[2023-12-18 09:33] VITALS: BP 141/96; PULSE 103; RESP 20; TEMP 36.3; O2SAT 98
--- NOTE | 2023-12-18 09:49 | W.ANESPRE ---
General Info Date of Service Date Performed: 12/18/23 Height: 5 ft 10 in Weight: 83.3 kg Body Mass Index (BMI): 26.3 Surgical Procedure: Operation Date: 12/18/23 09:55 Proposed Procedure Side Surgeon p Colonoscopy Roxie Smart DO s Possible Hemorrhoid Banding Roxie Smart DO Meds Allergies and Home Medications Allergies Allergy/AdvReac Type Severity Reaction Status Date / Time lisinopril AdvReac Intermediate cough Verified 12/18/23 09:40 tamsulosin AdvReac Mild liteheaded Verified 12/18/23 09:40 aspirin AdvReac gi upset Verified 12/18/23 09:40 Home Medication ?Medication ?Instructions ?Recorded cholecalciferol (vitamin D3) 25 25 mcg PO DAILY 10/11/20 mcg (1,000 unit) tablet triamcinolone acetonide 0.1 % 1 applic topical BID Both lower 02/13/21 topical cream extremities, rash #454 grams sildenafil 50 mg tablet (Viagra) 50 mg PO DAILY PRN sexual activity 07/29/21 #14 tab-caps clotrimazole 1 % topical cream 1 applic topical BID #45 grams 08/25/23 levothyroxine 75 mcg tablet 75 mcg PO DAILY #90 tabs 11/03/23 losartan 100 mg tablet See Rx Instructions .Route 11/03/23 .COMPLEX #90 tabs pravastatin 40 mg tablet See Rx Instructions .Route 11/03/23 .COMPLEX #90 tabs trazodone 50 mg tablet See Rx Instructions .Route 11/03/23 .COMPLEX #90 tabs polyethylene glycol 3350 17 17 g PO ONCE #238 grams 12/10/23 gram/dose oral powder Current Visit Medications: Current Medications Generic Name Dose Route Start Last Admin Trade Name Freq PRN Reason Stop Dose Admin Acetaminophen 1,000 mg 12/18/23 06:00 Acetaminophen 500 Mg Tab PO 12/18/23 16:00 PREOP [facility] Gabapentin 600 mg 12/18/23 06:00 Gabapentin 300 Mg Cap PO 12/18/23 16:00 PREOP [facility] Ringer's Solution 1,000 mls @ 80 mls/hr 12/18/23 06:00 IV 01/16/24 23:59 INFUSION [facility] IV Miscellaneous Supplies 1 each 12/18/23 06:00 Iv Access IV 01/16/24 23:59 DIRECTED [facility] Ondansetron HCl 4 mg 12/18/23 06:00 Ondansetron 4 Mg/2 Ml Vial IVP 12/18/23 16:00 Q4H PRN PRN Nausea / Vomiting Sodium Chloride 0 ml 12/18/23 06:00 Normal Saline Flush 10 Ml Syr IV 01/16/24 23:59 PRN PRN Sodium Chloride 0 ml 12/18/23 06:00 Normal Saline 10 Ml Vial IJ 01/16/24 23:59 DIRECTED PRN Sterile Water 0 ml 12/18/23 06:00 Water,Injection,Sterile 10 Ml Vial IJ 01/16/24 23:59 DIRECTED PRN PFSH Active Problems Active Problems: Problem Status Onset Code Elevated PSA Acute R97.20 Nocturia Acute R35.1 Biceps tendinitis of right upper extremity Acute M75.21 Paresthesia of right upper extremity Acute R20.2 Bursitis of right shoulder Acute M75.51 Right rotator cuff tear Acute M75.101 Arthritis of right acromioclavicular joint Acute M19.011 Arthritis of right glenohumeral joint Acute M19.011 Tinea pedis Acute B35.3 Onychomycosis Acute B35.1 Medicare annual wellness visit, subsequent Acute Z00.00 Seborrheic keratoses Acute L82.1 Skin lesions Acute L98.9 History of tobacco abuse Acute Z87.891 Hypertension Chronic I10 Discharge planning issues Acute Z02.9 DVT prophylaxis Acute Z29.9 Alcohol use disorder Acute Syncope Chronic R55 Blurred vision, bilateral Acute H53.8 Hypothyroidism Chronic E03.9 Achilles tendinosis Acute M67.88 Abnormal chest x-ray Acute 02/02/14 R93.89 Diverticulosis Acute K57.90 Hyperlipidemia Acute E78.5 Encounter for screening colonoscopy Acute Z12.11 Pressure sensation in left ear Acute H93.8X2 Hoarseness Acute R49.0 Xerosis of skin Acute 06/14/15 L85.3 Tonsillar mass Acute 09/22/17 R22.0 Tobacco use disorder Acute 07/25/11 F17.200 Squamous cell carcinoma of vocal cord Acute 11/09/17 C32.0 Other and unspecified hyperlipidemia Acute 07/28/11 E78.5 Laryngeal cancer Acute 12/31/17 Impotence Acute 07/28/12 N52.9 Other and unspecified hyperlipidemia Acute 03/19/12 E78.5 Gout without tophus Acute 07/29/13 M10.9 Essential hypertension Acute 03/24/13 I10 Compression fracture of body of thoracic vertebra Acute 02/04/17 S22.000A Chondrocalcinosis Acute 04/16/16 M11.20 Benign prostatic hyperplasia Acute 09/28/13 N40.0 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 Surgical History Surgical History History of biopsy (09/14/18) laryngeal mass-Dr Quintero [facility] [place] Colonoscopy w/ BX (02/01/15) Tobacco Smoking/Tobacco Use Status: Current-Occasional Tobacco Type: cigarettes Years smoked: 40 Alcohol Alcohol Intake: current Alcohol intake frequency: 3 or more drinks per day Alcohol type: beer Substance Use Substance use: Never Substance use type: does not use Details: 2-3 12 oz bottles of beer a night. Vital Signs and Lab Results Vital Signs Most Recent Vital Signs in EMR: Most Recent Vital Signs Temp Pulse Resp BP Pulse Ox 36.3 C L 103 H 20 141/96 H 98 12/18/23 09:33 12/18/23 09:33 12/18/23 09:33 12/18/23 09:33 12/18/23 09:33 Lab Results Blood Type / Crossmatch: No Data to Display Complete Blood Count: No Data to Display Complete Metabolic Panel: No Data to Display Liver Function Panel: No Data to Display Coagulation Panel: No Data to Display Cardiac Panel: No Data to Display Arterial Blood Gas: No Data to Display Venous Blood Gas: No Data to Display Pancreas Panel: No Data to Display Thyroid Panel: No Data to Display Infectious Disease: No Data to Display Blood Cultures: No Data to Display Toxicology Panel: No Data to Display Imaging and Studies Imaging and Studies Study information below may be from another EMR and interpreted by another provider. Please see original notes in EMR for more complete details. EKG Summary: Conclusion Sinus rhythm...normal P axis, V-rate 60- 99 Normal [place] I have reviewed and interpreted ECG and agree with software generated interpretation. Echocardiogram Summary: Date of Exam: 10/09/20 Sex: M Admission Date: 10/09/20 : 1955 Age: 64 Indications: Syncopal episodes Conclusion Left Ventricle : The left ventricle is normal size. The left ventricular systolic function is normal. The left ventricular ejection fraction is within the normal range. There is normal left ventricular wall thickness. There is normal LV segmental wall motion. The diastolic function is abnormal. LVEF is 58%. Right Ventricle : The right ventricle is normal size. The right ventricular systolic function is normal. The RVSP is 30.9 mmHg. Mitral Valve : Moderate mitral annular calcification. Trace mitral regurgitation. No evidence of mitral valve stenosis. Great Vessels : The aortic root is normal in size. The ascending aorta is normal in size. Aortic arch is normal in caliber. IVC is normal in size and collapses >50% with inspiration. Please see remainder of study for further details. Carotid Artery Summary:: Date of Exam: 05/15/20 CLINICAL HISTORY: episode bilat blurred vision 3 weeks ago, h53.8. RIGHT CAROTID ARTERY: Plaque: Mild calcific plaque seen in the distal common carotid artery and the carotid bulb. Velocity elevation: None. LEFT CAROTID ARTERY: Plaque: Mild calcific plaque in the common carotid artery and carotid bulb. Velocity elevation: None. VERTEBRAL ARTERIES: Antegrade flow. Anesthesia Assessment and Plan Anesthesia History Personal History: No History of Anesthesia Complications Family History: No Family History of Anesthesia Complications Exercise Tolerance Exercise Tolerance: Metabolic Equivalents>4 Pertinent Negatives Pertinent Negatives: No Symptoms of GERD Cardiac & Pulmonary Exam Cardiac Exam: Normal S1/S2 Heart Sounds Pulmonary Exam: Clear Bilateral Breath Sounds Implantable Cardiac Device Does patient have a Pacemaker or an ICD?: No Airway Exam Known Difficult Airway: No Mallampati Class: 1 Mouth Opening: Normal (> 3cm) Thyromental Distance: Greater than 3 cm Neck Range of Motion: Full ROM and Other (paralyzed vocal cord, hoarse voice, neck chemo amd radiation. no neck surgery.) Neck Circumference: Normal Teeth Condition: Removable Dentures/Plates Upper ASA Classification ASA Score: ASA 3 Emergency Case?: No NPO Status NPO Status: NPO Clears >2 hours, Solids >8 hours Anesthesia Plan Resuscitation Status: Full Code Anesthesia Technique: General Anesthesia Airway Planned: Natural Airway Monitors Used: Standard Monitors
[2023-12-18 09:54] VITALS: BMI 26.3
[2023-12-18] MEDS: Lactated Ringers 1,000 ML 80 ML IV (09:58)
[2023-12-18] MEDS: Gabapentin 300 MG CAP 600 MG PO (10:05)
[2023-12-18] MEDS: Acetaminophen 500 MG TAB 1000 MG PO (10:05)
--- NOTE | 2023-12-18 10:50 | BOWEL_PTH ---
PATIENT: Kodak Eisenberg LOC: [facility] U#:[id number] AGE/SX: 68/M ROOM: RE12/18/[address]: Roxie Smart : 1955 BED: DIS: 12/18/2023 SPEC #: [id number] RECD: 12/18/23 11:21 STATUS: MICHELLE REQ #: [id number] ARINA: 12/18/23 10:[address]: Roxie Smart DEPT: Surgical Specimen RECD BY: Katherine George ENTERED: 12/18/23 11:22 SP TYPE: Bowel OTHR DR: Alondra Pedersen APRN Tissues: 1 - BIOPSY BOWEL Procedures: GROSS AND MICRO LEVEL 4 Comments: [id number]
[2023-12-18 11:08] VITALS: BP 119/55; PULSE 70; RESP 16; TEMP 36; O2SAT 96
[2023-12-18 11:44] VITALS: BP 136/90; PULSE 70; RESP 16; TEMP 35.7; O2SAT 98
[2023-12-18] MEDS: Hyoscyamine 0.125 MG SL/ORAL/CHEW SL (12:03)
[2023-12-18] MEDS: Ondansetron 4 MG/2 ML VIAL IVP (12:07)
[2023-12-18] MEDS: Ketorolac 15 MG/ML VIAL IVP (12:14)
[2023-12-18] MEDS: Normal Saline Flush 10 ML SYR IV (12:14)
--- NOTE | 2023-12-18 12:18 | W.ANESPOSTOP ---
Postoperative Evaluation Date, Time and Location Date Performed: 12/18/23 Time Performed: 12:18 Patient Location: Day Surgery Unit Vital Signs Most Recent Imported Vital Signs: Most Recent Vital Signs Temp Pulse Resp BP Pulse Ox 35.7 C L 70 16 136/90 98 12/18/23 11:44 12/18/23 11:44 12/18/23 11:44 12/18/23 11:44 12/18/23 11:44 Pain Score Most Recent Pain Score: Most Recent Pain Score Pain Level 9 12/18/23 11:44 Assessment Mental Status: Awake (Alert & Oriented to Patient Baseline) Airway and Respiratory Function: Patent airway with normal (patient baseline) respiratory exam Cardiovascular Function: Hemodynamically Stable Hydration Status: Adequately Hydrated Nausea & Vomiting: No Nausea or Vomiting Pain: Pain is Moderate or Severe Postoperative Pain Management: Other (Surgeon Addressing) Peripheral Nerve Block: Patient did not receive a nerve block
[2023-12-18 12:52] VITALS: BP 164/95; PULSE 80; RESP 16; TEMP 36; O2SAT 99
== END 2023-12-18 13:26 | disposition home or self-care (01) ==
LOC: SUR 08:57
PROVIDERS: PCP Nurse Practitioner; Visit Provider Surgery
PROC: 0DJD8ZZ Inspection of Lower Intestinal Tract, Via Natural or Artificial Opening Endoscopic (ICD-10-PCS; CPT 45378; principal; 2023-12-18 09:45)
DX: Z12.11 Encounter for screening for malignant neoplasm of colon (principal); K57.30 Diverticulosis of large intestine without perforation or abscess without bleeding; F10.90 Alcohol use, unspecified, uncomplicated; I10 Essential (primary) hypertension; K64.1 Second degree hemorrhoids; Z80.0 Family history of malignant neoplasm of digestive organs; D12.4 Benign neoplasm of descending colon
CPT/HCPCS: 45380; 88305; J1885; J2405; J2704; J3490

== ENCOUNTER 2024-04-15 00:51 | Outpatient (CLI) | payer MEDICARE, SELFPAY ==
[2024-04-15 19:02] LABS: PSA, Diagnostic 6.7 ng/mL (<=4.5)
== END 2024-04-15 00:52 | disposition home or self-care (01) ==
LOC: LBO 00:51
PROVIDERS: PCP Nurse Practitioner; Visit Provider Urology
DX: R97.20 Elevated prostate specific antigen [PSA] (principal)
CPT/HCPCS: 36415; 84153

== ENCOUNTER 2024-04-25 01:08 | Outpatient (CLI) | payer MEDICARE, SELFPAY ==
--- NOTE | 2024-04-25 | DI.CT_ITS ---
Exam(s) CT CHEST WO EXAM: CT CHEST WO CLINICAL HISTORY: LUNG NODULE R91.1 FU FROM 04/17/23 CT. TECHNIQUE: Imaging protocol: Axial computed tomography images were obtained and coronal and sagittal reformatted images were created and reviewed. Lung Computer Aided Detection (CAD) was utilized. COMPARISON: CT CT CHEST WO from 03/29/[address] CHEST LUNG CANCER SCREEN from 04/15/[address] CHEST LUNG CANCER SCREEN from 04/17/2023 FINDINGS: Tracheobronchial tree: Patent where visualized. No bronchiectasis is present. Pulmonary parenchyma: No consolidation or dominant measurable mass. No architectural distortion. Ther e is a stable 3 mm nodule in the lateral aspect of the right upper lobe (series 3, image 74). No new pulmonary nodules are present. Mediastinum and Torri: No dominant adenopathy or fluid collection. The esophagus is unremarkable. Pleura: No effusion or pneumothorax. Heart: The heart is not dilated. Coronary artery calcification is present. No pericardial effusion. Aorta: Thoracic aorta non-dilated. Atherosclerotic calcification is present. Upper abdomen: Unremarkable. Lymph nodes: Within normal limits. Soft tissues: Unremarkable. Bones:Within normal limits for the patient's age. IMPRESSION: Stable right upper lobe pulmonary nodule. No new pulmonary nodules. Twelve month follow-up examinat ion is recommended. RADIATION DOSE DELIVERED: 43.84mGy.cm Total DLP 43.84mGy.cm Total DLP DATA REPOSITORY: All CT scans at this facility are submitted to the National Radiology Data Registry (NRDR) Dose Index Registry (DIR) with the [employer] ([employer]). RADIATION OPTIMIZATION: All CT scans at this facility use at least one of these dose optimization te chniques: automated exposure control; mA and/or kV adjustment per patient size (includes targeted exa ms where dose is matched to clinical indication); or iterative reconstruction.
== END 2024-04-25 01:28 ==
LOC: DI 01:08
PROVIDERS: PCP Nurse Practitioner; Visit Provider Radiology Radiation Oncology
DX: R91.1 Solitary pulmonary nodule (principal)
CPT/HCPCS: 71250

== ENCOUNTER 2024-09-02 00:46 | Outpatient (CLI) | payer MEDICARE, SELFPAY ==
[2024-09-02 10:37] LABS: ALT 46 U/L (16-63); AST 20 U/L (15-37); Albumin 4.3 g/dL (3.4-5.0); Alkaline Phosphatase 69 U/L (46-116); Anion Gap 8.4 mmol/L (3-11); BUN 13 mg/dL (7-18); CO2 28.6 mmol/L (21.0-32.0); Calcium 9.7 mg/dL (8.5-10.1); Calculated LDL 94 mg/dL (<100); Chloride 96 mmol/L (98-107); Cholesterol 169 mg/dL (<200); Estimated GFR 81.47 (mL/min/1.73m2); Glucose 118 mg/dL (74-106); HDL Cholesterol 50 mg/dL (>or=40); Potassium 4.7 mmol/L (3.5-5.1); Sodium 133 mmol/L (136-145); TSH (W/Ref FT4) 2.17 uIU/mL (0.36-3.74); Total Protein 7.8 g/dL (6.4-8.2); Triglyceride 129 mg/dL (<150)
== END 2024-09-02 00:47 | disposition home or self-care (01) ==
LOC: LBO 00:46
PROVIDERS: PCP Nurse Practitioner; Referring Provider Nurse Practitioner; Visit Provider Nurse Practitioner
DX: I10 Essential (primary) hypertension (principal); E03.9 Hypothyroidism, unspecified; E78.5 Hyperlipidemia, unspecified
CPT/HCPCS: 36415; 80053; 80061; 84443

== ENCOUNTER 2024-10-28 01:05 | Outpatient (CLI) | payer MEDICARE, SELFPAY ==
[2024-10-31 09:00] LABS: PSA, Diagnostic 7.8 ng/mL (<=4.5)
== END 2024-10-28 01:06 | disposition home or self-care (01) ==
LOC: LBO 01:05
PROVIDERS: PCP Nurse Practitioner; Visit Provider Urology
DX: R97.20 Elevated prostate specific antigen [PSA] (principal)
CPT/HCPCS: 36415; 84153

== ENCOUNTER → 2024-11-01 09:55 | Outpatient (BNVA) | payer MEDICARE, SELFPAY | PROVIDERS: PCP Nurse Practitioner; Visit Provider Urology | DX: Z85.21 Personal history of malignant neoplasm of larynx (principal); R97.20 Elevated prostate specific antigen [PSA] | CPT/HCPCS: 99213 ==

== ENCOUNTER → 2025-04-27 00:34 | Outpatient (CLI) | payer MEDICARE, SELFPAY ==
--- NOTE | 2025-04-27 09:30 | DI.CTLCSR_ITS ---
Exam(s) CT CHEST LUNG CANCER SCREEN EXAM: CT CHEST LUNG CANCER SCREEN CLINICAL HISTORY: Screening for lung cancer,H/O TOBACCO ABUSE,z87.891 TECHNIQUE: Imaging Protocol: Axial computed tomography images with coronal and sagittal reformatted images were created and reviewed. Lung Computer Aided Detection (CAD) was utilized. COMPARISON: CT CT CHEST WO from 04/25/2024 FINDINGS: Tracheobronchial tree: Patent where visualized. No bronchiectasis. Pulmonary parenchyma: No consolidation or dominant measurable mass. No architectural distortion. Lung Nodules: There is a stable 2-3 mm nodule in the lateral aspect of the right upper lobe. Mediastinum and Torri: No dominant adenopathy or fluid collection. The esophagus is unremarkable. Thyroid gland: Unremarkable. Lymph nodes: Unremarkable. Pleura: No effusion or pneumothorax. Heart: The heart is not dilated. Mild coronary artery calcification is present. There is mild calcification of the mitral annulus. No pericardial effusion. Aorta: Thoracic aorta non-dilated.Atherosclerotic calcification is present. Upper abdomen: Unremarkable. Soft Tissues: Unremarkable. Bones: Within normal limits. IMPRESSION: Stable right upper lobe pulmonary nodule. There are no new pulmonary nodules. Lung RADS Cat 2 - Benign Appearance / Behavior: Nodules with a very low likelihood of becoming a clinically active cancer due to size or lack of growth Lung-RADS 1.0 CATEGORIES: Category 0 - Prior chest CT exam(s) being located for comparison. Category 1 - Annual screening in 12 months. No nodules or definitely benign nodules. Category 2 - Annual screening in 12 months. Benign appearance. Nodules with low likelihood of becoming active cancer. Category 3 - 6-month follow-up. Probably benign. Short-term follow-up suggested. Nodules with low likelihood of becoming active cancer. Category 4A - 3-month follow-up and CT/PET if >8 mm in size. Suspicious finding. Findings which require additional testing. Category 4B - Findings which require additional testing and tissue sampling. Suspicious finding. Category 4X - Category 3 or 4 nodules with additional features or imaging findings that increases the suspicion of malignancy. Modifier S- Potentially clinically significant finding. (Non lung cancer) RADIATION DOSE DELIVERED: 38.05mGy.cm Total DLP 38.05mGy.cmTotal DLP DATA REPOSITORY: All CT scans at this facility are submitted to the National Radiology Data Registry (NRDR) Dose Index Registry (DIR) with the [employer] ([employer]). RADIATION OPTIMIZATION: All CT scans at this facility use at least one of these dose optimization techniques: automated exposure control; mA and/or kV adjustment per patient size (includes targeted exams where dose is matched to clinical indication); or iterative reconstruction.
== END ==
LOC: DI 00:34
DX: Z87.891 Personal history of nicotine dependence (principal)
CPT/HCPCS: 71271

== ENCOUNTER 2025-04-27 12:30 | Outpatient (CLI) | payer MEDICARE, SELFPAY ==
[2025-04-27 23:03] LABS: PSA, Diagnostic 7.5 ng/mL (<=6.5)
== END 2025-04-27 12:31 | disposition home or self-care (01) ==
LOC: LBO 12:31
PROVIDERS: Visit Provider Urology
DX: R97.20 Elevated prostate specific antigen [PSA] (principal)
CPT/HCPCS: 36415; 84153

== ENCOUNTER → 2025-05-09 08:05 | Outpatient (BNVA) | payer MEDICARE, SELFPAY | PROVIDERS: Referring Provider Nurse Practitioner; Visit Provider Urology | DX: R97.20 Elevated prostate specific antigen [PSA] (principal) | CPT/HCPCS: 99213 ==